=== PATIENT | male | born 1975 | race Caucasian/White ===

== ENCOUNTER 2017-08-14 15:14 | Emergency (ER) | payer OTHER ==
[~2017-08-14] VITALS: Ht 177.8 cm; Wt 122.5 kg
[~2017-08-14 15:14] MED LIST: DULO30; FURO20 PO; Flomax0.4 MG PO; GABA300; HYDHCL25; HYDPAM25; HYDR1TAB94 PO; NITR.4SL SL; ONDA4ODT MM; POTCHL10ER PO; Percocet 5-3251 EACH PO; SENN187; VARE1
[2017-08-14] MEDS ORDERED: VENL75ER PO (15:19)
[2017-08-14 15:53] LABS: BASOPHILS ABSOLUTE AUTO 0.02 K/mm3 (0.00-0.23); BASOPHILS PERCENT AUTO 0 % (0-2); EOSINOPHILS ABSOLUTE AUTO 0.14 K/mm3 (0.00-0.68); EOSINOPHILS PERCENT AUTO 2 % (0-6); Hemoglobin 15.4 g/dL (13.5-17.5); IMMATURE GRAN ABSOLUTE AUTO 0.01 K/mm3 (0.00-0.10); IMMATURE GRAN PERCENT AUTO 0 % (0-1); LYMPHOCYTES ABSOLUTE AUTO 2.16 K/mm3 (0.84-5.20); LYMPHOCYTES PERCENT AUTO 29 % (21-46); MONOCYTES ABSOLUTE AUTO 0.51 K/mm3 (0.16-1.47); MONOCYTES PERCENT AUTO 7 % (4-13); Mean Corpuscular HGB 32.2 pg (26.0-34.0); Mean Corpuscular Volume 92 fL (80-100); Mean Platelet Volume 9.7 fL (9.1-12.4); NEUTROPHILS ABSOLUTE AUTO 4.74 K/mm3 (1.96-9.15); NEUTROPHILS PERCENT AUTO 63 % (41-73); Platelet Count 254 K/mm3 (150-400); RDW Coefficient Variation 12.7 % (11.7-14.2); Red Blood Cell Count 4.78 M/mm3 (4.30-5.90); White Blood Cell Count 7.58 K/mm3 (4.00-11.30)
[2017-08-14] MEDS ORDERED: IBUP600 PO (16:00)
[2017-08-14] MEDS ORDERED: CEPH500 PO (16:00)
[2017-08-14 16:19] LABS: Alanine Aminotransfer (ALT/SGP 79 U/L (12-78); Albumin, Blood 3.7 g/dL (3.4-5.0); Albumin/Globulin Ratio 0.9 (0.8-1.8); Alk Phos 85 U/L (50-136); Anion Gap 12 mmol/L (6-16); Aspartate Aminotrans (AST/SGOT 37 U/L (12-37); Bilirubin, Total 0.3 mg/dL (0.1-1.0); Blood Urea Nitrogen 11 mg/dL (8-24); Bun/Creatinine Ratio 13.9 (12.0-20.0); CO2, Blood 23 mmol/L (21-32); Calcium, Blood 8.2 mg/dL (8.5-10.1); Chloride, Blood 105 mmol/L (98-108); Creatinine, Blood 0.79 mg/dL (0.60-1.20); Glomerular Filtration Rate >60 (60-); Glucose, Blood 105 mg/dL (70-99); Sodium, Blood 140 mmol/L (136-145); Total Protein, Blood 7.7 g/dL (6.4-8.2); Troponin I <0.015 ng/mL (0.000-0.040)
[2017-08-14] MEDS ORDERED: Zofran Odt4 MG SL (16:27)
[2017-08-14] MEDS ORDERED: Norco 5-325 Ta1 EACH PO (16:27)
[2017-08-14 17:09] LABS: Source, Urine Clean Catch
[2017-08-14 17:11] LABS: Bilirubin, Urine Neg (Neg); Blood, Urine Neg (Neg); Glucose Qualitative, Urine Neg (Neg); Ketones, Urine 1+ (Neg); Leukocyte Esterase, Urine 1+ (Neg); Nitrite, Urine Neg (Neg); Protein, Urine Neg (Neg); Specific Gravity, Urine 1.015 (1.003-1.022); Urobilinogen, Urine NORM (Normal)
[2017-08-14 17:13] LABS: Appearance, Urine Clear (Clear); Color, Urine Yellow (P-Yellow)
[2017-08-14 17:16] LABS: Bacteria Mod /hpf; Red Blood Cells, Urine 0-2 /hpf (0-2); White Blood Cells, Urine 0-2 /hpf (0-5)
[2017-08-14 17:17] LABS: Squamous Epithelial Cells Not Seen /hpf (Few)
== END 2017-08-14 17:20 | disposition home or self-care (01) ==
LOC: ER 15:14
PROVIDERS: Psychiatry & Neurology Psychiatry
DX: K52.9 Noninfective gastroenteritis and colitis, unspecified (principal); N12 Tubulo-interstitial nephritis, not specified as acute or chronic; N20.0 Calculus of kidney; F17.210 Nicotine dependence, cigarettes, uncomplicated; Z79.899 Other long term (current) drug therapy; Z87.442 Personal history of urinary calculi
CPT/HCPCS: 36415; 71046; 74176; 80053; 81001; 84484; 85025; 87086; 93005; 93010; 96361; 96374; 99284; J1885; J7030

== ENCOUNTER 2017-08-23 04:05 | Emergency (ER) | payer OTHER ==
[~2017-08-23] VITALS: Ht 177.8 cm; Wt 122.5 kg
[~2017-08-23 04:05] MED LIST changes: +CEPH500 PO; +IBUP600 PO; +Norco 5-325 Ta1 EACH PO; +VENL75ER PO; +Zofran Odt4 MG SL
[2017-08-23 04:44] LABS: BASOPHILS ABSOLUTE AUTO 0.07 K/mm3 (0.00-0.23); BASOPHILS PERCENT AUTO 1 % (0-2); EOSINOPHILS ABSOLUTE AUTO 0.22 K/mm3 (0.00-0.68); EOSINOPHILS PERCENT AUTO 2 % (0-6); Hematocrit 43.8 % (37.0-53.0); Hemoglobin 14.5 g/dL (13.5-17.5); IMMATURE GRAN ABSOLUTE AUTO 0.03 K/mm3 (0.00-0.10); IMMATURE GRAN PERCENT AUTO 0 % (0-1); LYMPHOCYTES ABSOLUTE AUTO 2.99 K/mm3 (0.84-5.20); LYMPHOCYTES PERCENT AUTO 24 % (21-46); MONOCYTES ABSOLUTE AUTO 0.79 K/mm3 (0.16-1.47); MONOCYTES PERCENT AUTO 6 % (4-13); Mean Corpuscular HGB 31.4 pg (26.0-34.0); Mean Corpuscular HGB Conc 33.1 g/dL (31.5-36.5); Mean Platelet Volume 9.5 fL (9.1-12.4); NEUTROPHILS ABSOLUTE AUTO 8.55 K/mm3 (1.96-9.15); NEUTROPHILS PERCENT AUTO 68 % (41-73); Platelet Count 254 K/mm3 (150-400); RDW Coefficient Variation 12.6 % (11.7-14.2); RDW Standard Deviation 43.8 fL (35.1-46.3); Red Blood Cell Count 4.62 M/mm3 (4.30-5.90); White Blood Cell Count 12.65 K/mm3 (4.00-11.30)
[2017-08-23 04:46] LABS: Mean Corpuscular Volume 95 fL (80-100)
[2017-08-23 04:57] LABS: Alanine Aminotransfer (ALT/SGP 81 U/L (12-78); Albumin, Blood 3.8 g/dL (3.4-5.0); Alk Phos 74 U/L (50-136); Anion Gap 8 mmol/L (6-16); Aspartate Aminotrans (AST/SGOT 34 U/L (12-37); Bilirubin, Total 0.4 mg/dL (0.1-1.0); Blood Urea Nitrogen 10 mg/dL (8-24); Bun/Creatinine Ratio 14.2 (12.0-20.0); CO2, Blood 23 mmol/L (21-32); Calcium, Blood 8.2 mg/dL (8.5-10.1); Chloride, Blood 106 mmol/L (98-108); Creatinine, Blood 0.71 mg/dL (0.60-1.20); Globulin, Blood 3.8 g/dL (2.2-4.0); Glomerular Filtration Rate >60 (60-); Glucose, Blood 104 mg/dL (70-99); Potassium, Blood 4.2 mmol/L (3.5-5.5); Sodium, Blood 137 mmol/L (136-145); Total Protein, Blood 7.6 g/dL (6.4-8.2)
[2017-08-23] MEDS ORDERED: Toprol Xl25 MG PO (07:00)
[2017-08-23] MEDS ORDERED: Percocet 5-3251 EACH PO (07:48)
[2017-08-23] MEDS ORDERED: Zofran Odt4 MG SL (07:48)
== END 2017-08-23 08:24 | disposition home or self-care (01) ==
LOC: ER 04:05
PROVIDERS: Emergency Medicine
DX: K80.20 Calculus of gallbladder without cholecystitis without obstruction (principal); Z79.891 Long term (current) use of opiate analgesic; Z79.899 Other long term (current) drug therapy; Z87.442 Personal history of urinary calculi; I51.7 Cardiomegaly; F17.200 Nicotine dependence, unspecified, uncomplicated
CPT/HCPCS: 36415; 74176; 76705; 80053; 83690; 85025; 93005; 93010; 96374; 96375; 96376; 99284; J1170; J2405

== ENCOUNTER 2017-08-26 10:35 | Emergency (ER) | payer OTHER ==
[~2017-08-26] VITALS: Ht 177.8 cm; Wt 122.5 kg
[~2017-08-26 10:35] MED LIST changes: +Toprol Xl25 MG PO
[2017-08-26 11:20] LABS: BASOPHILS ABSOLUTE AUTO 0.05 K/mm3 (0.00-0.23); BASOPHILS PERCENT AUTO 0 % (0-2); EOSINOPHILS ABSOLUTE AUTO 0.13 K/mm3 (0.00-0.68); EOSINOPHILS PERCENT AUTO 1 % (0-6); Hematocrit 41.5 % (37.0-53.0); Hemoglobin 14.1 g/dL (13.5-17.5); IMMATURE GRAN ABSOLUTE AUTO 0.07 K/mm3 (0.00-0.10); IMMATURE GRAN PERCENT AUTO 1 % (0-1); LYMPHOCYTES ABSOLUTE AUTO 1.38 K/mm3 (0.84-5.20); LYMPHOCYTES PERCENT AUTO 11 % (21-46); MONOCYTES ABSOLUTE AUTO 1.45 K/mm3 (0.16-1.47); MONOCYTES PERCENT AUTO 12 % (4-13); Mean Corpuscular HGB 31.3 pg (26.0-34.0); Mean Platelet Volume 9.9 fL (9.1-12.4); NEUTROPHILS ABSOLUTE AUTO 9.43 K/mm3 (1.96-9.15); NEUTROPHILS PERCENT AUTO 75 % (41-73); Platelet Count 254 K/mm3 (150-400); RDW Coefficient Variation 12.5 % (11.7-14.2); RDW Standard Deviation 42.3 fL (35.1-46.3); White Blood Cell Count 12.51 K/mm3 (4.00-11.30)
[2017-08-26 11:32] LABS: Mean Corpuscular Volume 92 fL (80-100)
[2017-08-26 11:42] LABS: Alanine Aminotransfer (ALT/SGP 508 U/L (12-78); Albumin, Blood 3.4 g/dL (3.4-5.0); Albumin/Globulin Ratio 0.8 (0.8-1.8); Alk Phos 153 U/L (50-136); Anion Gap 9 mmol/L (6-16); Aspartate Aminotrans (AST/SGOT 193 U/L (12-37); Bilirubin, Total 6.7 mg/dL (0.1-1.0); Blood Urea Nitrogen 7 mg/dL (8-24); Bun/Creatinine Ratio 9.5 (12.0-20.0); CO2, Blood 24 mmol/L (21-32); Calcium, Blood 8.7 mg/dL (8.5-10.1); Chloride, Blood 103 mmol/L (98-108); Creatinine, Blood 0.74 mg/dL (0.60-1.20); Globulin, Blood 4.4 g/dL (2.2-4.0); Glomerular Filtration Rate >60 (60-); Glucose, Blood 92 mg/dL (70-99); Potassium, Blood 3.7 mmol/L (3.5-5.5); Sodium, Blood 136 mmol/L (136-145); Total Protein, Blood 7.8 g/dL (6.4-8.2)
[2017-08-26 11:43] LABS: Source, Urine Clean Catch
[2017-08-26 11:51] LABS: Blood, Urine 1+ (Neg); Glucose Qualitative, Urine Neg (Neg); Ketones, Urine 1+ (Neg); Leukocyte Esterase, Urine 1+ (Neg); Nitrite, Urine Neg (Neg); Protein, Urine 1+ (Neg); Specific Gravity, Urine 1.015 (1.003-1.022); Urobilinogen, Urine 3+ (Normal); pH, Urine 6.5 (5.0-8.0)
[2017-08-26 12:07] LABS: Bilirubin, Urine 2+ (Neg)
[2017-08-26 12:08] LABS: Appearance, Urine Clear (Clear)
[2017-08-26 12:09] LABS: Bacteria Not Seen /hpf; Red Blood Cells, Urine Not Seen /hpf (0-2); Squamous Epithelial Cells Rare /hpf (Few)
[2017-08-26 12:15] LABS: Color, Urine Amber (P-Yellow)
== END 2017-08-26 14:32 | disposition left against medical advice (07) ==
LOC: ER 10:35
PROVIDERS: Emergency Medicine
DX: Z53.21 Procedure and treatment not carried out due to patient leaving prior to being seen by health care provider (principal)
CPT/HCPCS: 36415; 80053; 81001; 85025; 87086; 99283; J7030; J7120

== ENCOUNTER 2017-08-27 15:22 | Observation (INO) | payer OTHER ==
[~2017-08-27] VITALS: Ht 177.8 cm; Wt 121.3 kg
[2017-08-27 16:37] LABS: BASOPHILS ABSOLUTE AUTO 0.04 K/mm3 (0.00-0.23); BASOPHILS PERCENT AUTO 0 % (0-2); EOSINOPHILS ABSOLUTE AUTO 0.22 K/mm3 (0.00-0.68); EOSINOPHILS PERCENT AUTO 2 % (0-6); Hematocrit 42.3 % (37.0-53.0); Hemoglobin 14.3 g/dL (13.5-17.5); IMMATURE GRAN ABSOLUTE AUTO 0.04 K/mm3 (0.00-0.10); IMMATURE GRAN PERCENT AUTO 0 % (0-1); LYMPHOCYTES ABSOLUTE AUTO 2.09 K/mm3 (0.84-5.20); LYMPHOCYTES PERCENT AUTO 23 % (21-46); MONOCYTES ABSOLUTE AUTO 0.92 K/mm3 (0.16-1.47); MONOCYTES PERCENT AUTO 10 % (4-13); Mean Corpuscular HGB 31.6 pg (26.0-34.0); Mean Corpuscular HGB Conc 33.8 g/dL (31.5-36.5); Mean Corpuscular Volume 94 fL (80-100); Mean Platelet Volume 9.5 fL (9.1-12.4); NEUTROPHILS PERCENT AUTO 64 % (41-73); Platelet Count 289 K/mm3 (150-400); RDW Coefficient Variation 12.7 % (11.7-14.2); RDW Standard Deviation 43.8 fL (35.1-46.3); Red Blood Cell Count 4.52 M/mm3 (4.30-5.90); White Blood Cell Count 9.21 K/mm3 (4.00-11.30)
[2017-08-27 16:55] LABS: Alanine Aminotransfer (ALT/SGP 317 U/L (12-78); Albumin, Blood 3.3 g/dL (3.4-5.0); Albumin/Globulin Ratio 0.7 (0.8-1.8); Alk Phos 136 U/L (50-136); Anion Gap 7 mmol/L (6-16); Aspartate Aminotrans (AST/SGOT 67 U/L (12-37); Bilirubin, Total 1.4 mg/dL (0.1-1.0); Blood Urea Nitrogen 12 mg/dL (8-24); Bun/Creatinine Ratio 17.3 (12.0-20.0); CO2, Blood 24 mmol/L (21-32); Calcium, Blood 8.8 mg/dL (8.5-10.1); Chloride, Blood 107 mmol/L (98-108); Creatinine, Blood 0.69 mg/dL (0.60-1.20); Globulin, Blood 4.6 g/dL (2.2-4.0); Glomerular Filtration Rate >60 (60-); Glucose, Blood 87 mg/dL (70-99); Potassium, Blood 4.1 mmol/L (3.5-5.5); Sodium, Blood 138 mmol/L (136-145); Total Protein, Blood 7.9 g/dL (6.4-8.2)
[2017-08-27 18:43] LABS: Source, Urine Clean Catch
[2017-08-27 19:07] LABS: Appearance, Urine Clear (Clear); Blood, Urine Neg (Neg); Color, Urine Amber (P-Yellow); Glucose Qualitative, Urine Neg (Neg); Ketones, Urine 2+ (Neg); Leukocyte Esterase, Urine 1+ (Neg); Nitrite, Urine Pos (Neg); Protein, Urine 2+ (Neg); Urobilinogen, Urine 4+ (Normal)
[2017-08-27 19:15] LABS: Bilirubin, Urine 2+ (Neg)
[2017-08-27 19:18] LABS: Bacteria Rare /hpf; Red Blood Cells, Urine Not Seen /hpf (0-2); Squamous Epithelial Cells Rare /hpf (Few); White Blood Cells, Urine 0-2 /hpf (0-5)
[2017-08-28 04:59] LABS: BASOPHILS ABSOLUTE AUTO 0.04 K/mm3 (0.00-0.23); BASOPHILS PERCENT AUTO 0 % (0-2); EOSINOPHILS ABSOLUTE AUTO 0.34 K/mm3 (0.00-0.68); EOSINOPHILS PERCENT AUTO 4 % (0-6); Hematocrit 37.7 % (37.0-53.0); Hemoglobin 12.4 g/dL (13.5-17.5); IMMATURE GRAN ABSOLUTE AUTO 0.02 K/mm3 (0.00-0.10); IMMATURE GRAN PERCENT AUTO 0 % (0-1); LYMPHOCYTES ABSOLUTE AUTO 2.86 K/mm3 (0.84-5.20); LYMPHOCYTES PERCENT AUTO 32 % (21-46); MONOCYTES ABSOLUTE AUTO 0.89 K/mm3 (0.16-1.47); MONOCYTES PERCENT AUTO 10 % (4-13); Mean Corpuscular HGB 31.3 pg (26.0-34.0); Mean Corpuscular HGB Conc 32.9 g/dL (31.5-36.5); Mean Corpuscular Volume 95 fL (80-100); NEUTROPHILS ABSOLUTE AUTO 4.82 K/mm3 (1.96-9.15); NEUTROPHILS PERCENT AUTO 54 % (41-73); Platelet Count 247 K/mm3 (150-400); RDW Coefficient Variation 12.5 % (11.7-14.2); RDW Standard Deviation 43.8 fL (35.1-46.3); Red Blood Cell Count 3.96 M/mm3 (4.30-5.90); White Blood Cell Count 8.97 K/mm3 (4.00-11.30)
[2017-08-28 05:18] LABS: Alanine Aminotransfer (ALT/SGP 232 U/L (12-78); Albumin, Blood 2.7 g/dL (3.4-5.0); Albumin/Globulin Ratio 0.7 (0.8-1.8); Alk Phos 105 U/L (50-136); Amylase, Blood 16 U/L (25-115); Anion Gap 8 mmol/L (6-16); Aspartate Aminotrans (AST/SGOT 47 U/L (12-37); Bilirubin, Direct 0.6 mg/dL (0.0-0.3); Bilirubin, Indirect 0.5 mg/dL (0.1-0.7); Bilirubin, Total 1.1 mg/dL (0.1-1.0); Blood Urea Nitrogen 11 mg/dL (8-24); Bun/Creatinine Ratio 14.6 (12.0-20.0); CO2, Blood 26 mmol/L (21-32); Calcium, Blood 8.1 mg/dL (8.5-10.1); Chloride, Blood 105 mmol/L (98-108); Creatinine, Blood 0.75 mg/dL (0.60-1.20); Glomerular Filtration Rate >60 (60-); Glucose, Blood 75 mg/dL (70-99); Potassium, Blood 3.9 mmol/L (3.5-5.5); Sodium, Blood 139 mmol/L (136-145); Total Protein, Blood 6.7 g/dL (6.4-8.2)
[2017-08-29 04:39] LABS: BASOPHILS ABSOLUTE AUTO 0.01 K/mm3 (0.00-0.23); BASOPHILS PERCENT AUTO 0 % (0-2); EOSINOPHILS PERCENT AUTO 0 % (0-6); Hematocrit 36.6 % (37.0-53.0); IMMATURE GRAN ABSOLUTE AUTO 0.05 K/mm3 (0.00-0.10); IMMATURE GRAN PERCENT AUTO 0 % (0-1); LYMPHOCYTES ABSOLUTE AUTO 1.41 K/mm3 (0.84-5.20); LYMPHOCYTES PERCENT AUTO 12 % (21-46); MONOCYTES ABSOLUTE AUTO 0.84 K/mm3 (0.16-1.47); MONOCYTES PERCENT AUTO 7 % (4-13); Mean Corpuscular HGB 31.2 pg (26.0-34.0); Mean Corpuscular HGB Conc 32.8 g/dL (31.5-36.5); Mean Corpuscular Volume 95 fL (80-100); Mean Platelet Volume 9.8 fL (9.1-12.4); NEUTROPHILS ABSOLUTE AUTO 9.26 K/mm3 (1.96-9.15); NEUTROPHILS PERCENT AUTO 80 % (41-73); Platelet Count 310 K/mm3 (150-400); RDW Coefficient Variation 12.6 % (11.7-14.2); RDW Standard Deviation 43.9 fL (35.1-46.3); Red Blood Cell Count 3.85 M/mm3 (4.30-5.90); White Blood Cell Count 11.57 K/mm3 (4.00-11.30)
[2017-08-29 05:05] LABS: Alanine Aminotransfer (ALT/SGP 219 U/L (12-78); Albumin/Globulin Ratio 0.7 (0.8-1.8); Alk Phos 106 U/L (50-136); Anion Gap 6 mmol/L (6-16); Aspartate Aminotrans (AST/SGOT 60 U/L (12-37); Bilirubin, Direct 0.5 mg/dL (0.0-0.3); Bilirubin, Indirect 0.4 mg/dL (0.1-0.7); Bilirubin, Total 0.9 mg/dL (0.1-1.0); Blood Urea Nitrogen 8 mg/dL (8-24); Bun/Creatinine Ratio 11.8 (12.0-20.0); CO2, Blood 29 mmol/L (21-32); Calcium, Blood 8.3 mg/dL (8.5-10.1); Chloride, Blood 104 mmol/L (98-108); Creatinine, Blood 0.68 mg/dL (0.60-1.20); Globulin, Blood 4.1 g/dL (2.2-4.0); Glomerular Filtration Rate >60 (60-); Glucose, Blood 106 mg/dL (70-99); Magnesium, Blood 2.2 mg/dL (1.6-2.4); Phosphorus, Blood 4.1 mg/dL (2.5-4.9); Potassium, Blood 4.2 mmol/L (3.5-5.5); Sodium, Blood 139 mmol/L (136-145); Total Protein, Blood 7.1 g/dL (6.4-8.2)
== END 2017-08-29 04:45 | disposition short-term general hospital (02) ==
LOC: ER 15:22 → SURS 15:23
PROVIDERS: Physician Assistant; Surgery
PROC: 0FT44ZZ Resection of Gallbladder, Percutaneous Endoscopic Approach (ICD-10-PCS; principal; 2017-08-28 12:30)
DX: K80.00 Calculus of gallbladder with acute cholecystitis without obstruction (principal); F17.200 Nicotine dependence, unspecified, uncomplicated; F12.90 Cannabis use, unspecified, uncomplicated; G47.33 Obstructive sleep apnea (adult) (pediatric); E66.01 Morbid (severe) obesity due to excess calories; Z87.442 Personal history of urinary calculi; Z98.890 Other specified postprocedural states; Z68.38 Body mass index [BMI] 38.0-38.9, adult
CPT/HCPCS: 36415; 76705; 80048; 80053; 80076; 81001; 82150; 83690; 83735; 84100; 85025; 87086; 88304; 94762; 96361; 96365; 96372; 96375; 96376; 99285; G0378; J0295; J0330; J0697; J1100; J1170; J1200; J1650; J2250; J2270; J2405; J2710; J2765; J3010; J7030; J7120

== ENCOUNTER 2017-09-03 20:20 | Emergency (ER) | payer OTHER ==
[~2017-09-03] VITALS: Ht 177.8 cm; Wt 122.5 kg
[2017-09-03 23:24] LABS: BASOPHILS ABSOLUTE AUTO 0.04 K/mm3 (0.00-0.23); BASOPHILS PERCENT AUTO 0 % (0-2); EOSINOPHILS ABSOLUTE AUTO 0.29 K/mm3 (0.00-0.68); EOSINOPHILS PERCENT AUTO 3 % (0-6); Hematocrit 38.8 % (37.0-53.0); IMMATURE GRAN ABSOLUTE AUTO 0.06 K/mm3 (0.00-0.10); IMMATURE GRAN PERCENT AUTO 1 % (0-1); LYMPHOCYTES ABSOLUTE AUTO 2.84 K/mm3 (0.84-5.20); LYMPHOCYTES PERCENT AUTO 31 % (21-46); MONOCYTES ABSOLUTE AUTO 0.62 K/mm3 (0.16-1.47); MONOCYTES PERCENT AUTO 7 % (4-13); Mean Corpuscular HGB 31.8 pg (26.0-34.0); Mean Corpuscular HGB Conc 33.5 g/dL (31.5-36.5); Mean Corpuscular Volume 95 fL (80-100); Mean Platelet Volume 9.3 fL (9.1-12.4); NEUTROPHILS ABSOLUTE AUTO 5.31 K/mm3 (1.96-9.15); NEUTROPHILS PERCENT AUTO 58 % (41-73); Platelet Count 447 K/mm3 (150-400); RDW Coefficient Variation 12.6 % (11.7-14.2); RDW Standard Deviation 44.1 fL (35.1-46.3); Red Blood Cell Count 4.09 M/mm3 (4.30-5.90); White Blood Cell Count 9.16 K/mm3 (4.00-11.30)
[2017-09-03 23:40] LABS: Alanine Aminotransfer (ALT/SGP 66 U/L (12-78); Albumin, Blood 2.9 g/dL (3.4-5.0); Albumin/Globulin Ratio 0.7 (0.8-1.8); Alk Phos 88 U/L (50-136); Anion Gap 5 mmol/L (6-16); Aspartate Aminotrans (AST/SGOT 29 U/L (12-37); Bilirubin, Total 0.4 mg/dL (0.1-1.0); Blood Urea Nitrogen 13 mg/dL (8-24); Bun/Creatinine Ratio 20.6 (12.0-20.0); CO2, Blood 26 mmol/L (21-32); Calcium, Blood 8.3 mg/dL (8.5-10.1); Chloride, Blood 108 mmol/L (98-108); Creatinine, Blood 0.63 mg/dL (0.60-1.20); Globulin, Blood 4.4 g/dL (2.2-4.0); Glomerular Filtration Rate >60 (60-); Glucose, Blood 92 mg/dL (70-99); Potassium, Blood 4.8 mmol/L (3.5-5.5); Sodium, Blood 139 mmol/L (136-145); Total Protein, Blood 7.3 g/dL (6.4-8.2)
[2017-09-04] MEDS ORDERED: Augmentin 875-1 EACH PO (00:47)
[2017-09-04] MEDS ORDERED: DOCU100 PO (00:47)
[2017-09-04] MEDS ORDERED: Roxicodone5 MG PO (00:47)
== END 2017-09-04 02:44 | disposition home or self-care (01) ==
LOC: ER 20:20
PROVIDERS: Emergency Medicine
DX: G89.18 Other acute postprocedural pain (principal); R10.11 Right upper quadrant pain; F17.210 Nicotine dependence, cigarettes, uncomplicated; Z87.442 Personal history of urinary calculi
CPT/HCPCS: 74177; 80053; 83690; 85025; 93005; 93010; 96361; 96365; 96375; 96376; 99284; J1170; J2543; J7030; Q9967

== ENCOUNTER 2017-09-14 21:52 | Emergency (ER) | payer OTHER ==
[~2017-09-14] VITALS: Ht 177.8 cm; Wt 126.1 kg
[~2017-09-14 21:52] MED LIST changes: +Augmentin 875-1 EACH PO; +DOCU100 PO; +Roxicodone5 MG PO
[2017-09-14 23:07] LABS: BASOPHILS ABSOLUTE AUTO 0.05 K/mm3 (0.00-0.23); BASOPHILS PERCENT AUTO 1 % (0-2); EOSINOPHILS ABSOLUTE AUTO 0.29 K/mm3 (0.00-0.68); EOSINOPHILS PERCENT AUTO 3 % (0-6); Hematocrit 39.9 % (37.0-53.0); Hemoglobin 13.2 g/dL (13.5-17.5); Mean Corpuscular HGB 31.2 pg (26.0-34.0); Mean Corpuscular HGB Conc 33.1 g/dL (31.5-36.5); Mean Corpuscular Volume 94 fL (80-100); Mean Platelet Volume 9.3 fL (9.1-12.4); Platelet Count 337 K/mm3 (150-400); RDW Coefficient Variation 12.9 % (11.7-14.2); RDW Standard Deviation 44.4 fL (35.1-46.3); Red Blood Cell Count 4.23 M/mm3 (4.30-5.90); White Blood Cell Count 10.08 K/mm3 (4.00-11.30)
[2017-09-14 23:08] LABS: IMMATURE GRAN ABSOLUTE AUTO 0.02 K/mm3 (0.00-0.10); IMMATURE GRAN PERCENT AUTO 0 % (0-1); LYMPHOCYTES PERCENT AUTO 41 % (21-46); MONOCYTES ABSOLUTE AUTO 0.73 K/mm3 (0.16-1.47); MONOCYTES PERCENT AUTO 7 % (4-13); NEUTROPHILS ABSOLUTE AUTO 4.89 K/mm3 (1.96-9.15); NEUTROPHILS PERCENT AUTO 49 % (41-73)
[2017-09-14 23:27] LABS: Alanine Aminotransfer (ALT/SGP 71 U/L (12-78); Albumin, Blood 3.4 g/dL (3.4-5.0); Albumin/Globulin Ratio 0.9 (0.8-1.8); Alk Phos 79 U/L (50-136); Anion Gap 6 mmol/L (6-16); Aspartate Aminotrans (AST/SGOT 32 U/L (12-37); Bilirubin, Total 0.3 mg/dL (0.1-1.0); Blood Urea Nitrogen 12 mg/dL (8-24); Bun/Creatinine Ratio 15.5 (12.0-20.0); CO2, Blood 29 mmol/L (21-32); Calcium, Blood 8.4 mg/dL (8.5-10.1); Chloride, Blood 106 mmol/L (98-108); Creatinine, Blood 0.77 mg/dL (0.60-1.20); Globulin, Blood 3.8 g/dL (2.2-4.0); Glomerular Filtration Rate >60 (60-); Glucose, Blood 95 mg/dL (70-99); Potassium, Blood 3.9 mmol/L (3.5-5.5); Sodium, Blood 141 mmol/L (136-145); Total Protein, Blood 7.2 g/dL (6.4-8.2)
== END 2017-09-15 01:35 | disposition home or self-care (01) ==
LOC: ER 21:52
PROVIDERS: Emergency Medicine
DX: G89.18 Other acute postprocedural pain (principal); R10.9 Unspecified abdominal pain; Z79.899 Other long term (current) drug therapy; Z87.442 Personal history of urinary calculi; F17.210 Nicotine dependence, cigarettes, uncomplicated; Z48.815 Encounter for surgical aftercare following surgery on the digestive system
CPT/HCPCS: 36415; 74176; 80053; 83605; 83690; 85025; 87040; 99284; J7030

== ENCOUNTER 2019-07-11 15:43 | Emergency (ER) | payer OTHER ==
[~2019-07-11] VITALS: Ht 177.8 cm; Wt 136.1 kg
[2019-07-11 16:17] LABS: BASOPHILS ABSOLUTE AUTO 0.03 K/mm3 (0.00-0.23); BASOPHILS PERCENT AUTO 0 % (0-2); EOSINOPHILS ABSOLUTE AUTO 0.21 K/mm3 (0.00-0.68); EOSINOPHILS PERCENT AUTO 3 % (0-6); Hematocrit 44.5 % (37.0-53.0); Hemoglobin 14.7 g/dL (13.5-17.5); IMMATURE GRAN ABSOLUTE AUTO 0.01 K/mm3 (0.00-0.10); IMMATURE GRAN PERCENT AUTO 0 % (0-1); LYMPHOCYTES ABSOLUTE AUTO 2.29 K/mm3 (0.84-5.20); LYMPHOCYTES PERCENT AUTO 28 % (21-46); MONOCYTES ABSOLUTE AUTO 0.55 K/mm3 (0.16-1.47); MONOCYTES PERCENT AUTO 7 % (4-13); Mean Corpuscular HGB 31.5 pg (26.0-34.0); Mean Corpuscular Volume 96 fL (80-100); Mean Platelet Volume 9.6 fL (9.1-12.4); NEUTROPHILS PERCENT AUTO 62 % (41-73); Platelet Count 277 K/mm3 (150-400); RDW Coefficient Variation 12.9 % (11.7-14.2); RDW Standard Deviation 45.6 fL (35.1-46.3); Red Blood Cell Count 4.66 M/mm3 (4.30-5.90); White Blood Cell Count 8.09 K/mm3 (4.00-11.30)
[2019-07-11 16:37] LABS: Alanine Aminotransfer (ALT/SGP 104 U/L (12-78); Albumin, Blood 3.6 g/dL (3.4-5.0); Albumin/Globulin Ratio 0.9 (0.8-1.8); Alk Phos 82 U/L (50-136); Anion Gap 5 mmol/L (6-16); Aspartate Aminotrans (AST/SGOT 43 U/L (12-37); Bilirubin, Total 0.4 mg/dL (0.1-1.0); Blood Urea Nitrogen 13 mg/dL (8-24); Bun/Creatinine Ratio 14.2 (12.0-20.0); CO2, Blood 27 mmol/L (21-32); Calcium, Blood 8.7 mg/dL (8.5-10.1); Chloride, Blood 105 mmol/L (98-108); Creatinine, Blood 0.91 mg/dL (0.60-1.20); Glomerular Filtration Rate >60 (60-); Glucose, Blood 143 mg/dL (70-99); Potassium, Blood 3.6 mmol/L (3.5-5.5); Sodium, Blood 137 mmol/L (136-145); Total Protein, Blood 7.6 g/dL (6.4-8.2); Troponin I <0.015 ng/mL (0.000-0.040)
[2019-07-11] MEDS ORDERED: FURO20 PO (16:48)
--- NOTE | 2019-07-11 19:19 | NUR ---
Echocardiogram completed.
[2019-07-11] MEDS ORDERED: Dyazide 37.5-21 EACH PO (19:34)
== END 2019-07-11 19:55 | disposition home or self-care (01) ==
LOC: ER 15:43
PROVIDERS: Physician Assistant
DX: R60.0 Localized edema (principal); E66.9 Obesity, unspecified; F17.210 Nicotine dependence, cigarettes, uncomplicated; Z68.41 Body mass index [BMI] 40.0-44.9, adult; Z79.899 Other long term (current) drug therapy
CPT/HCPCS: 36415; 71046; 80053; 83880; 84484; 85025; 85379; 93005; 93010; 93306; 93971; 99284-25

== ENCOUNTER 2019-07-12 17:56 | Emergency (ER) | payer OTHER ==
[~2019-07-12] VITALS: Ht 177.8 cm; Wt 136.1 kg
[~2019-07-12 17:56] MED LIST changes: +Dyazide 37.5-21 EACH PO
[2019-07-12 18:50] LABS: Calcium, Ionized (POC) 1.16 mmol/L (1.10-1.46); Chloride (POC) 102 mmol/L (98-108); Glucose (ISTAT POC) 99 mg/dL (70-99); Hemoglobin (POC) 15.3 g/dL (13.5-17.5); Sodium (POC) 139 mmol/L (135-148); Total CO2 (POC) 30 mmol/L (21-32)
[2019-07-12 19:05] LABS: BASOPHILS ABSOLUTE AUTO 0.04 K/mm3 (0.00-0.23); BASOPHILS PERCENT AUTO 1 % (0-2); EOSINOPHILS ABSOLUTE AUTO 0.25 K/mm3 (0.00-0.68); EOSINOPHILS PERCENT AUTO 3 % (0-6); Hematocrit 44.6 % (37.0-53.0); Hemoglobin 14.9 g/dL (13.5-17.5); IMMATURE GRAN ABSOLUTE AUTO 0.01 K/mm3 (0.00-0.10); IMMATURE GRAN PERCENT AUTO 0 % (0-1); LYMPHOCYTES ABSOLUTE AUTO 2.64 K/mm3 (0.84-5.20); LYMPHOCYTES PERCENT AUTO 32 % (21-46); MONOCYTES ABSOLUTE AUTO 0.63 K/mm3 (0.16-1.47); MONOCYTES PERCENT AUTO 8 % (4-13); Mean Corpuscular HGB 31.6 pg (26.0-34.0); Mean Corpuscular HGB Conc 33.4 g/dL (31.5-36.5); Mean Corpuscular Volume 95 fL (80-100); Mean Platelet Volume 9.7 fL (9.1-12.4); NEUTROPHILS ABSOLUTE AUTO 4.77 K/mm3 (1.96-9.15); NEUTROPHILS PERCENT AUTO 57 % (41-73); Platelet Count 283 K/mm3 (150-400); RDW Coefficient Variation 12.6 % (11.7-14.2); RDW Standard Deviation 44.8 fL (35.1-46.3); Red Blood Cell Count 4.71 M/mm3 (4.30-5.90); White Blood Cell Count 8.34 K/mm3 (4.00-11.30)
[2019-07-12 19:19] LABS: International Normalized Ratio 0.95; Prothrombin Time Results 10.1 Sec (9.7-11.5)
[2019-07-12 19:29] LABS: Alanine Aminotransfer (ALT/SGP 117 U/L (12-78); Albumin, Blood 3.6 g/dL (3.4-5.0); Albumin/Globulin Ratio 0.9 (0.8-1.8); Alk Phos 84 U/L (50-136); Anion Gap 5 mmol/L (6-16); Aspartate Aminotrans (AST/SGOT 46 U/L (12-37); Bilirubin, Total 0.3 mg/dL (0.1-1.0); Blood Urea Nitrogen 12 mg/dL (8-24); Bun/Creatinine Ratio 14.3 (12.0-20.0); CO2, Blood 29 mmol/L (21-32); Chloride, Blood 104 mmol/L (98-108); Creatinine, Blood 0.84 mg/dL (0.60-1.20); Globulin, Blood 4.2 g/dL (2.2-4.0); Glomerular Filtration Rate >60 (60-); Glucose, Blood 94 mg/dL (70-99); Potassium, Blood 3.9 mmol/L (3.5-5.5); Sodium, Blood 138 mmol/L (136-145); Total Protein, Blood 7.8 g/dL (6.4-8.2)
== END 2019-07-12 20:55 | disposition home or self-care (01) ==
LOC: ER 17:56
PROVIDERS: Physician Assistant
DX: R04.0 Epistaxis (principal); F17.210 Nicotine dependence, cigarettes, uncomplicated
CPT/HCPCS: 36415; 71046; 80047; 80053; 85014; 85025; 85610; 85730; 93005; 93010; 99284-25

== ENCOUNTER 2019-07-13 17:10 | Observation (INO) | payer OTHER ==
[~2019-07-13] VITALS: Ht 180.3 cm; Wt 143.0 kg
[2019-07-13 18:15] LABS: BASOPHILS ABSOLUTE AUTO 0.05 K/mm3 (0.00-0.23); BASOPHILS PERCENT AUTO 1 % (0-2); EOSINOPHILS ABSOLUTE AUTO 0.31 K/mm3 (0.00-0.68); EOSINOPHILS PERCENT AUTO 3 % (0-6); Hematocrit 44.5 % (37.0-53.0); Hemoglobin 15.3 g/dL (13.5-17.5); IMMATURE GRAN ABSOLUTE AUTO 0.02 K/mm3 (0.00-0.10); IMMATURE GRAN PERCENT AUTO 0 % (0-1); LYMPHOCYTES ABSOLUTE AUTO 3.42 K/mm3 (0.84-5.20); LYMPHOCYTES PERCENT AUTO 33 % (21-46); MONOCYTES ABSOLUTE AUTO 0.89 K/mm3 (0.16-1.47); MONOCYTES PERCENT AUTO 9 % (4-13); Mean Corpuscular HGB 32.5 pg (26.0-34.0); Mean Corpuscular HGB Conc 34.4 g/dL (31.5-36.5); Mean Corpuscular Volume 95 fL (80-100); Mean Platelet Volume 9.8 fL (9.1-12.4); NEUTROPHILS ABSOLUTE AUTO 5.54 K/mm3 (1.96-9.15); NEUTROPHILS PERCENT AUTO 54 % (41-73); Platelet Count 316 K/mm3 (150-400); RDW Coefficient Variation 12.8 % (11.7-14.2); RDW Standard Deviation 44.9 fL (35.1-46.3); Red Blood Cell Count 4.71 M/mm3 (4.30-5.90); White Blood Cell Count 10.23 K/mm3 (4.00-11.30)
[2019-07-13 18:30] LABS: International Normalized Ratio 0.95; Prothrombin Time Results 10.1 Sec (9.7-11.5)
[2019-07-13 18:38] LABS: Alanine Aminotransfer (ALT/SGP 134 U/L (12-78); Albumin, Blood 3.6 g/dL (3.4-5.0); Albumin/Globulin Ratio 0.9 (0.8-1.8); Alk Phos 85 U/L (50-136); Anion Gap 5 mmol/L (6-16); Aspartate Aminotrans (AST/SGOT 57 U/L (12-37); Bilirubin, Total 0.4 mg/dL (0.1-1.0); Blood Urea Nitrogen 15 mg/dL (8-24); Bun/Creatinine Ratio 16.1 (12.0-20.0); CO2, Blood 29 mmol/L (21-32); Calcium, Blood 8.6 mg/dL (8.5-10.1); Chloride, Blood 104 mmol/L (98-108); Creatinine, Blood 0.93 mg/dL (0.60-1.20); Globulin, Blood 4.1 g/dL (2.2-4.0); Glomerular Filtration Rate >60 (60-); Glucose, Blood 96 mg/dL (70-99); Potassium, Blood 3.6 mmol/L (3.5-5.5); Sodium, Blood 138 mmol/L (136-145); Total Protein, Blood 7.7 g/dL (6.4-8.2)
--- NOTE | 2019-07-13 22:46 | NUR ---
PT TO ICU 16 AT 2215 RECOVERY AFTER SEPTOPLASTY AND ETHMOID ARTERY LIGATION. PT WAS INITIALLY A LITTLE COMBATIVE BUT CLEARED QUICKLY. PT IS TALKING WITH AND MOM AT BEDSIDE NOW. ABLE TO FOLLOW COMMANDS. ON RA AND SPO2 IN THE 90'S.
--- NOTE | 2019-07-13 23:39 | NUR ---
2339: SILVER COLORED RING WITH INUPIAT LIKE FACE RETURNED TO PT FROM CHART AND PT PLACES ON 5TH DIGIT OF RIGHT HAND. PT ROUSES TO VOICE BUT APPEARS DROWSY. MAINTAIN NPO STATUS, CALL LIGHT IN REACH.
--- NOTE | 2019-07-13 23:45 | NUR ---
PT HERE FROM RECOVERY. A/O X4. FAMILY AT BEDSIDE.
[2019-07-14] MEDS ORDERED: OMEPRAZOLE20 MG PO (00:08)
--- NOTE | 2019-07-14 04:04 | NUR ---
SHIFT SUMMARY PT IS S/P SURGERY D/T ONGOING NOSEBLEED. PT IS A/O, TOLERATING PO INTAKE. REPORTS NO N/V. PAIN CONTROLLED WITH PO PAIN MED PER ORDER. PT IS VOIDING, AMBULATES IND. FAMILY IS AT BEDSIDE. PT HAS SLEPT MUCH OF THE NIGHT. ASSISTED WITH ADL'S PRN.
[2019-07-14] MEDS ORDERED: Percocet 5-3251 EACH PO (10:20)
[2019-07-14] MEDS ORDERED: OXYM.05NI (10:21)
--- NOTE | 2019-07-14 11:05 | NUR ---
DISCHARGED REVIEWED DC INSTRUCTIONS W/PT; VERBALIZED UNDERSTANDING. DC'D IV, CATHETER INTACT. DC'D TELE AND RETURNED TO PCU. PT LEFT UNIT IN WC W/POSSESSIONS AND DC PAPERWORK IN HAND ACCOMPANIED BY S.O.
--- NOTE | 2019-07-16 09:44 | NUR ---
07/16/19 0944 Elva Colvin VERIFICATIONS: EDIT CHART.
== END 2019-07-14 10:41 | disposition home or self-care (01) ==
LOC: ER 17:10 → SURS 17:11 → ER 18:34 → SURS 18:34
PROVIDERS: Otolaryngology; Physician Assistant; ADMIT Hospitalist
PROC: 093K8ZZ Control Bleeding in Nasal Mucosa and Soft Tissue, Via Natural or Artificial Opening Endoscopic (ICD-10-PCS; principal; 2019-07-13 18:30)
DX: R04.0 Epistaxis (principal); K21.9 Gastro-esophageal reflux disease without esophagitis; I10 Essential (primary) hypertension; F17.210 Nicotine dependence, cigarettes, uncomplicated; F17.220 Nicotine dependence, chewing tobacco, uncomplicated; E66.01 Morbid (severe) obesity due to excess calories; Z68.41 Body mass index [BMI] 40.0-44.9, adult; Z79.899 Other long term (current) drug therapy
CPT/HCPCS: 36415; 80053; 85025; 85610; 86850; 86900; 86901; 96361; 96374; 99284-25; J0171; J0330; J1100; J2060; J2405; J2704; J3010; J7030; J7120

== ENCOUNTER → 2019-09-04 | Outpatient (CLI) | payer OTHER ==
[~2019-09-04] MED LIST changes: +OMEPRAZOLE20 MG PO; +OXYM.05NI
== END | disposition home or self-care (01) ==
LOC: PLD 07:48 → LAB SHORT 07:48
DX: D10.39 Benign neoplasm of other parts of mouth (principal)
CPT/HCPCS: 88302

== ENCOUNTER 2019-10-15 07:23 | Emergency (ER) | payer OTHER ==
[~2019-10-15] VITALS: Ht 177.8 cm; Wt 138.3 kg
[2019-10-15 08:35] LABS: BASOPHILS ABSOLUTE AUTO 0.03 K/mm3 (0.00-0.23); BASOPHILS PERCENT AUTO 0 % (0-2); EOSINOPHILS ABSOLUTE AUTO 0.21 K/mm3 (0.00-0.68); EOSINOPHILS PERCENT AUTO 3 % (0-6); Hematocrit 41.9 % (37.0-53.0); Hemoglobin 13.8 g/dL (13.5-17.5); IMMATURE GRAN ABSOLUTE AUTO 0.02 K/mm3 (0.00-0.10); IMMATURE GRAN PERCENT AUTO 0 % (0-1); LYMPHOCYTES ABSOLUTE AUTO 2.28 K/mm3 (0.84-5.20); LYMPHOCYTES PERCENT AUTO 27 % (21-46); MONOCYTES ABSOLUTE AUTO 0.72 K/mm3 (0.16-1.47); MONOCYTES PERCENT AUTO 8 % (4-13); Mean Corpuscular HGB Conc 32.9 g/dL (31.5-36.5); Mean Corpuscular Volume 94 fL (80-100); Mean Platelet Volume 9.5 fL (9.1-12.4); NEUTROPHILS ABSOLUTE AUTO 5.31 K/mm3 (1.96-9.15); NEUTROPHILS PERCENT AUTO 62 % (41-73); Platelet Count 254 K/mm3 (150-400); RDW Coefficient Variation 13.4 % (11.7-14.2); RDW Standard Deviation 46.1 fL (35.1-46.3); Red Blood Cell Count 4.45 M/mm3 (4.30-5.90); White Blood Cell Count 8.57 K/mm3 (4.00-11.30)
[2019-10-15 08:50] LABS: Alanine Aminotransfer (ALT/SGP 93 U/L (12-78); Albumin, Blood 3.2 g/dL (3.4-5.0); Albumin/Globulin Ratio 0.8 (0.8-1.8); Alk Phos 77 U/L (50-136); Anion Gap 5 mmol/L (6-16); Aspartate Aminotrans (AST/SGOT 39 U/L (12-37); Bilirubin, Total 0.3 mg/dL (0.1-1.0); Blood Urea Nitrogen 10 mg/dL (8-24); Bun/Creatinine Ratio 10.4 (12.0-20.0); CO2, Blood 27 mmol/L (21-32); Calcium, Blood 8.2 mg/dL (8.5-10.1); Chloride, Blood 107 mmol/L (98-108); Creatinine, Blood 0.97 mg/dL (0.60-1.20); Globulin, Blood 3.9 g/dL (2.2-4.0); Glomerular Filtration Rate >60 (60-); Glucose, Blood 97 mg/dL (70-99); Potassium, Blood 3.8 mmol/L (3.5-5.5); Sodium, Blood 139 mmol/L (136-145); Total Protein, Blood 7.1 g/dL (6.4-8.2); Troponin I <0.015 ng/mL (0.000-0.040)
[2019-10-15] MEDS ORDERED: Lasix40 MG PO (09:54)
[2019-10-15] MEDS ORDERED: K-Dur20 MEQ PO (09:58)
== END 2019-10-15 10:08 | disposition home or self-care (01) ==
LOC: ER 07:23
PROVIDERS: Emergency Medicine
DX: R60.0 Localized edema (principal); F10.20 Alcohol dependence, uncomplicated; F17.210 Nicotine dependence, cigarettes, uncomplicated
CPT/HCPCS: 36415; 71046; 80053; 83880; 84484; 85025; 93005; 93010

== ENCOUNTER 2019-11-25 07:22 | Inpatient (IN) | payer OTHER ==
[~2019-11-25] VITALS: Ht 177.8 cm; Wt 145.4 kg
[~2019-11-25 07:22] MED LIST changes: +K-Dur20 MEQ PO; +Lasix40 MG PO
[2019-11-25 07:39] LABS: BASOPHILS ABSOLUTE AUTO 0.04 K/mm3 (0.00-0.23); BASOPHILS PERCENT AUTO 0 % (0-2); EOSINOPHILS PERCENT AUTO 4 % (0-6); Hemoglobin 14.7 g/dL (13.5-17.5); IMMATURE GRAN ABSOLUTE AUTO 0.06 K/mm3 (0.00-0.10); IMMATURE GRAN PERCENT AUTO 1 % (0-1); LYMPHOCYTES PERCENT AUTO 18 % (21-46); MONOCYTES ABSOLUTE AUTO 0.62 K/mm3 (0.16-1.47); MONOCYTES PERCENT AUTO 6 % (4-13); Mean Corpuscular HGB 30.2 pg (26.0-34.0); Mean Corpuscular HGB Conc 32.7 g/dL (31.5-36.5); Mean Corpuscular Volume 92 fL (80-100); Mean Platelet Volume 9.4 fL (9.1-12.4); NEUTROPHILS ABSOLUTE AUTO 7.56 K/mm3 (1.96-9.15); NEUTROPHILS PERCENT AUTO 71 % (41-73); Platelet Count 269 K/mm3 (150-400); RDW Coefficient Variation 13.5 % (11.7-14.2); RDW Standard Deviation 45.9 fL (35.1-46.3); Red Blood Cell Count 4.87 M/mm3 (4.30-5.90); White Blood Cell Count 10.58 K/mm3 (4.00-11.30)
[2019-11-25 07:58] LABS: Alanine Aminotransfer (ALT/SGP 99 U/L (12-78); Albumin, Blood 3.6 g/dL (3.4-5.0); Albumin/Globulin Ratio 0.9 (0.8-1.8); Alk Phos 85 U/L (50-136); Anion Gap 8 mmol/L (6-16); Aspartate Aminotrans (AST/SGOT 63 U/L (12-37); Bilirubin, Total 0.2 mg/dL (0.1-1.0); Blood Urea Nitrogen 13 mg/dL (8-24); Bun/Creatinine Ratio 12.3 (12.0-20.0); CO2, Blood 27 mmol/L (21-32); Calcium, Blood 8.5 mg/dL (8.5-10.1); Chloride, Blood 104 mmol/L (98-108); Creatinine, Blood 1.06 mg/dL (0.60-1.20); Globulin, Blood 4.2 g/dL (2.2-4.0); Glomerular Filtration Rate >60 (60-); Glucose, Blood 125 mg/dL (70-99); Potassium, Blood 3.6 mmol/L (3.5-5.5); Sodium, Blood 139 mmol/L (136-145); Total Protein, Blood 7.8 g/dL (6.4-8.2)
--- NOTE | 2019-11-25 10:50 | NUR ---
PT RECENTLY TO ROOM FROM ER BY ETHEL. PT HAS LEFT LEG IMMOBILIZER IN PLACE. PT MOVED TO BED WITH MULT ASSIST WITH STAFF SUPPORTING HIS LEFT LEG. PT REPORTS PAIN TO L SIDE OF CHEST WHERE HE HAS SOME BROKEN RIBS. PT DENIES SHORTNESS OF BREATH OR DIFFICULTY BREATHING. REPORTS HX OF SMOKING AND DRINKING WITH LAST DRINK LAST NIGHT, WHICH HE STATED HAVING 4 SHOTS OF WHISKEY LAST NIGHT WHICH HE NORMALLY HAS 1-2/NIGHT. PT REPORTS VOIDING WITHOUT DIFFICULTY, REPORTS BEEN PASSING GAS AND HAD BM YESTERDAY. PT DENIES ANY THOUGHTS OF SUICIDE. PT DENIES ANY CONTACT WITH ANY KNOWN COVID CASE OR BEING OUTSIDE OF THE [place] RECENTLY. PT SPEAKING CLEAR SENTENCES. PPX4. WIGGLES TOES. PT HAS SMALL AMT OF MEDICATION IN POCKET WHICH HE STATES IS KLONIPIN FOR WHEN HE HAS AN ANXIETY ATTACK, PT CONFIRMED TO HAVE 4 PILLS WHICH WERE LOCKED IN THE DRAWER OUTSIDE HIS ROOM AFTER VERIFYING COUNT WITH PT AND CERTIFIED PROSTHETIST/ORTHOTIST H.L.. PT DECLINED WANTING SECURITY TO LOCK THEM IN SAFE FOR HIM. PT ASSISTED WITH ADL'S. LEFT LEG ELEVATED ON MULT PILLOWS. PT GIVEN CELL PHONE OUT OF HIS BELONGINGS. MONEY FROM PANTS POCKET INTO HIS WALLET WHICH IS IN HIS BELONGING BAG HIS PANTS HAVE BEEN CUT OFF OF HIM. PT ORIENTED TO CALL LIGHT. PT REPORTS NO SIGNS OF W/D AT THIS TIME. PT GIVEN MOUTH SWABS HE IS NPO. IV FLUSHED WITHOUT DIFFICULTY.
--- NOTE | 2019-11-25 11:31 | NUR ---
DR MATOS HERE TO SEE PT, DISCUSSED PT'S STATUS.
--- NOTE | 2019-11-25 11:32 | NUR ---
DR MATOS REPORTS PT MAY HAVE SMALL AMT OF ICE CHIPS NOW.
--- NOTE | 2019-11-25 14:18 | NUR ---
REPORT GIVEN TO Amparo SHE IS TAKING OVER CARE AT THIS TIME. PT RESTING QUIETLY AT THIS TIME.
--- NOTE | 2019-11-25 15:29 | NUR ---
DR. SCOTT IN TO CONSULT ON PT. NO PLAN FOR SUGERY UNTIL SWELLING TO LEG DECREASES. IMMOBILIZER ADJUSTED AND LEFT LEG ELEVATED ON PILLOWS.
--- NOTE | 2019-11-25 16:15 | NUR ---
SHIFT SUMMARY NO ACUTE CHANGES SINCE ASSUMING CARE. PT HAS BEEN DROWSY AND FALLS ASLEEP DURING CONVERSATIONS, BUT EASILY AWAKENS. PT REPORTS HE HAS SEVERE PAIN, BUT AT REST, HE APPEARS COMFORTABLE. PT MOSTLY COMPLAINS OF PAIN DURING MOVEMENT OR DEEP BREATHING/COUGHING. LEFT LEG IN IMMOBILIZER AND ELEVATED ON PILLOWS. 2L [address] NC [address]ACE PT DESATS DURING SLEEP AND AFTER RECEIVING NARCOTICS. PT RECEIVING TORADOL FOR PAIN AND MORPHINE ONLY FOR SEVERE PAIN. PT RUSSELL CLEAR LIQ. USING URINAL TO VOID. ORTHO CONSULTED TODAY. NO PLAN FOR SURGERY UNTIL SWELLING OF LEFT LEG GOES DOWN. PT USES CALL LIGHT APPROPRIATELY.
[2019-11-25] MEDS ORDERED: OMEP20ER PO (18:11)
[2019-11-25] MEDS ORDERED: CLON1 PO (18:12)
--- NOTE | 2019-11-25 22:56 | NUR ---
PT HAS BEEN VERY DROWSY SINCE START OF SHIFT AND WAS DROWSY ON DAY SHIFT PER DAY RN. WHEN ASKED, PT REPORTS HE HAD A LOT TO DRINK BEFORE HIS ACCIDENT BUT WAS UNCLEAR TO EXCALTY WHAT TIME HIS LAST DRINK WAS. PT REPORTS NO HX OF ETOH WITHDRAWAL; EDUCATED ABOUT S/S OF WITHDRAWAL. DENIES OTHER DRUG USE WITHIN THE LAST FEW DAYS. WCTM.
--- NOTE | 2019-11-26 04:36 | NUR ---
SHIFT SUMMARY PT IS A/O X4 BUT HAS BEEN DROWSY ALL SHIFT. PAIN MANAGED WITH PO PAIN MED AND TORADOL PER ORDERS. SEE EMAR. PT HAD STRONG PEDAL PULSES THROUGHOUT THE NIGHT. C/O DISCOMFORT WITH DEEP BREATHS. CURRENTLY USING 2L O2 NC. DISCUSSED ETOH WITHDRAWAL; PT DENIES HX OF WITHDRAWAL. HAS BEEN NPO SINCE MIDNIGHT IN CASE OF SURGERY TODAY. ASSISTED WTIH ADL'S PRN.
--- NOTE | 2019-11-26 09:50 | NUR ---
PLAN OF CARE DISCUSSED PLAN OF CARE WITH DR. JAIN THIS MORINING. HE REPORTED WE WILL CONTINUE TO WAIT FOR THE SWELLING IN THE PT'S LEG TO DECREASE BEFORE PT GOES TO SURGERY. PER DR. JAIN PT NO LONGER NEEDS TO BE NPO. PT REPORTS NUMBNESS IN HIS L FOOT; DR. JAIN NOTIFIED. LEFT LEG ELEVATED. WILL CONTINUE TO MONITOR.
--- NOTE | 2019-11-26 14:31 | NUR ---
DR. MATOS NOTIFIED THAT THIS PT DID NOT CLEAR THERAPY AND WILL NEED FUTHER WORK WITH THERAPY UNTIL HE WILL BE ABLE TO CARE FOR HIMSELF AT HOME.
--- NOTE | 2019-11-26 16:53 | NUR ---
SHIFT SUMMARY PAIN HAS BEEN MANAGED WITH NORCO AND TORADOL THIS SHIFT. PT HAS BEEN OOB X1 WITH THERAPY THIS SHIFT. HE IS A 2 PERSON MODERATE ASSIST FOR TRANSFERS. PT WILL NEED ADDITIONAL THERAPY BEFORE HE CAN RETURN HOME. DR. JAIN AND DR. MATOS ARE AWARE. PT HAS BEEN SOMNOLENT T/O THE DAY, HE DOES WAKE UP EASILY. PT HAS SLEEP APNEA, CPAP ORDERED FOR SLEEPING. VSS. WILL MONITOR UNTIL REPORT TO ONCOMING RN.
--- NOTE | 2019-11-27 04:40 | NUR ---
SHIFT SUMMARY PT A/OX4 W/VSS. IMMOBILIZER TO LEFT KNEE IN PLACE. ALL EXTREMITIES WARM/ PINK, DENIES N/T, AND ABLE TO WIGGLE FINGERS/TOES. 1+ EDEMA TO LEFT FOOT. UP IN CHAIR T/O ENTIRE SHIFT, PER PT REQUEST. BLE ELEVATED ON PILLOWS AND FOOTREST. PT ABLE TO ASSIST WITH REPOSITIONING WHILE IN CHAIR. DENIES SOB, REPORTS DISCOMFORT WITH DEEP BREATHING AT TIMES R/T RIB FX'S. CPAP WITH 2L BLEED AND CONT BIOX IN PLACE. PAIN MANAGED WITH 1 NORCO AND TORADOL. REPORTS PASSING FLATUS, DENIES N/V. USES URINAL WITHOUT DIFFICULTY. PT CURRENTLY IN CHAIR WITH CALL LIGHT IN REACH. WILL CONT TO MONITOR AND GIVE REPORT TO ONCOMING RN.
--- NOTE | 2019-11-27 10:29 | NUR ---
HOME MEDICATIONS REQUESTED FROM DR. CHAMBERLAIN.
--- NOTE | 2019-11-27 10:53 | NUR ---
PAIN MANAGEMENT PAIN IS STILL AN ISSUE DURING TRANSFERS. PT BECOMES PAINFUL AND CRIES WITH TRANSFERS. HE IS ALSO WEAK AND IS ONLY ABLE TO STAND AND PIVOT TRANSFER. DR. CHAMBERLAIN IS AWARE. WILL CONTINUE TO MONITOR.
--- NOTE | 2019-11-27 18:07 | NUR ---
ASSUMED PT CARE AT ABOUT 1115
--- NOTE | 2019-11-27 18:09 | NUR ---
SUMMARY: NO ACUTE CHANGE SINCE ASSUMED PT CARE. PT PAINFUL WITH TRANSFER FROM CHAIR TO BED. ABLE TO MAINTAIN WEIGHT BEARING ORDERS WITH STAND/PIVOT-PT SLOW AND PAINFUL. REPORTS MOST PAIN IS AT L RIBS. MEDICATED PER EMAR. PT HOME MEDS RESTARTED. VSS, A/O, USING CALL LIGHT. PT USING CPAP FOR NAPS, CONTINUING TO MONITOR SATS VIA OXIMETER. NO ACUTE SAFETY CONCERNS. WILL REPORT TO KEVIN CABRAL.
[2019-11-27] MEDS ORDERED: DYAZIDE 37.5-21 EACH PO (21:36)
--- NOTE | 2019-11-28 06:40 | NUR ---
SHIFT SUMMARY L TIBIAL PLAT FX, AND MULT LEFT RIB FX. PT PAINFUL DURING SHIFT, PAIN MANAGED PER EMAR. TOLERATED WELL. CPAP ON DURING SHIFT SATS STILL DROPPED OCCASIONALLY, CONT BIOX IN PLACE. SATS INTO LOW 80'S RAISED QUICKLY WHEN AWOKEN. SWEATING DURING SHIFT PT STATES NORMAL, TOLERATING PO WELL. VOIDED IN URINAL. IMMOBILZER IN PLACE. LEG ELEVATED ON MULTIPLE PILLOWS. PLAN TO CONTINUE WORKING WITH PT/OT AND REASSESS ON TUESDAY.
--- NOTE | 2019-11-28 10:25 | NUR ---
PT UP TO CHAIR AFTER WORKING WITH THERAPY EARLIER.
--- NOTE | 2019-11-28 17:50 | NUR ---
SHIFT SUMMARY PT EATING AND DRINKING, VOIDING. PASSING GAS. PT BEEN GIVEN BOWEL CARE. PT WORKED WITH BOTH PHYSICAL THERAPY AND OT TODAY. PT SAT UP IN CHAIR TODAY. PT BEEN PLEASANT AND COOPERATIVE.
--- NOTE | 2019-11-29 04:10 | NUR ---
SHIFT SUMMARY PT IS A/O X4. REPOSITIONS SELF SOMEWHAT IN BED AND HAS BEEN ASSISTED WITH REPOSITIONING PRN. PAIN MANAGED WITH PO PAIN MEDS AND TORADOL PER ORDERS. PT TOLERATING PO INTAKE AND VOIDING. IMMOBILIZER IN PLACE TO L LEG. BIOX IN PLACE THROUGH THE SHIFT AND PT HAS USED CPAP WHILE ASLEEP. ASSISTED WITH ADL'S PRN, NO ACUTE CHANGES OVERNIGHT.
[2019-11-29] MEDS ORDERED: HYDR1TAB94 PO (11:24)
--- NOTE | 2019-11-29 13:06 | NUR ---
OT HERE TO WORK WITH PT.
--- NOTE | 2019-11-29 15:45 | NUR ---
SHIFT SUMMARY PT EATING AND DRINKING, VOIDING, PASSING GAS. REPORTS FEELING THAT HE WILL HAVE BM SOON AND DOES NOT WISH TO HAVE ANY OTHER BOWEL CARE AT THIS TIME. PT REPORTS PAIN CONTROLLED ON PO PAIN MEDICATION. PT CLEARED FROM THERAPY TO GO HOME. PT WAITING FOR FAMILY TO HAVE APPR EQUIP WHICH THEY REPORT THEY WILL BE ABLE TO GET TODAY. IV OUT EARLIER TODAY. PT BEEN ASSISTED WITH BED BATH AND GETTING DRESSED. BELONGINGS ON BED.
--- NOTE | 2019-11-29 18:30 | NUR ---
DISCHARGE: PT EATING AND DRINKING, VOIDING, PASSING GAS. PT FAMILY PICKED UP SCRIPTS EARLIER FOR EQUIPMENT AND PAIN MEDICATION. PT REPORTS FAMILY ABLE TO GET WALKER AND W/C TO BORROW FROM FAMILY UNTIL OBTAINING NEW ONE'S FROM [facility]. PAPERWORK WAS FAXED TO [facility] EARLIER TODAY. PT REPORTS PAIN TOLERABLE ON PO PAIN MEDICATION. PT REPORTS UNDERSTANDING OF DISCHARGE INSTRUCTIONS UNCLUDING THERAPY EXCERCISES AND I/S. PT WAS CLEARED BY THERAPY TO GO HOME. PT AND FAMILY STATE ABLE TO GET PT INTO HOME WITHOUT HAVING ANY STEPS THAT W/C WILL GO STRAIGHT INTO HOUSE AND THAT PT FAMILY WAS ABLE TO GET SPECIAL RECLINER FOR PT. PT SENT WITH BELONGINGS INCLUDING HOME MEDICATIONS (VERIFIED COUNT BY OTHER RN H.L. AND PT).
== END 2019-11-29 18:47 | disposition home or self-care (01) | DRG 200 ==
LOC: ER 07:22 → SURS 07:23 → ER 09:08 → SURS 09:08
PROVIDERS: Emergency Medicine; ADMIT Surgery
DX: S27.0XXA Traumatic pneumothorax, initial encounter (principal); S22.42XA Multiple fractures of ribs, left side, initial encounter for closed fracture; S82.142A Displaced bicondylar fracture of left tibia, initial encounter for closed fracture; S27.321A Contusion of lung, unilateral, initial encounter; F17.210 Nicotine dependence, cigarettes, uncomplicated; V86.56XA Driver of dirt bike or motor/cross bike injured in nontraffic accident, initial encounter; Y92.9 Unspecified place or not applicable
CPT/HCPCS: 29505; 70450; 71045; 71260; 72125; 73562-LT; 73700; 74177; 80053; 85025; 86850; 86900; 86901; 94660; 94762; 96361; 96372; 96374; 96375; 96376; 97110; 97162; 97166; 97530; 97535; 99285-25; A9270-GY; G0378; J1650; J1885; J2270; J7120; Q9967

== ENCOUNTER 2019-12-06 14:08 | Inpatient (IN) | payer OTHER ==
[~2019-12-06] VITALS: Ht 177.8 cm; Wt 135.0 kg
[~2019-12-06 14:08] MED LIST changes: +CLON1 PO; +DYAZIDE 37.5-21 EACH PO; +OMEP20ER PO
[2019-12-10] MEDS ORDERED: FURO20 PO (15:10)
[2019-12-10] MEDS ORDERED: POTA10T PO (15:11)
[2019-12-10] MEDS ORDERED: TYLENOL (15:30)
[2019-12-10] MEDS ORDERED: Norco 5-325 Ta1 EACH PO (15:30)
[2019-12-10] MEDS ORDERED: IBUP400 (15:30)
[2019-12-10] MEDS ORDERED: OMEP20ER PO (15:31)
[2019-12-10] MEDS ORDERED: TRIAMTERENE-HCTZ PO (15:31)
--- NOTE | 2019-12-11 12:04 | NUR ---
Surgical site prepped with 2% Chlorhexidine cloth wipe. History, Chart, Medications and Allergies reviewed before start of procedure. Lungs clear T/O to Auscultation. Patient confirms NPO status and agrees with scheduled surgery. Pre-Op teaching done. Pt verbalizes understanding. Patient States Post-Procedure ride home has been arranged. Patient reports completing Chlorhexadine shower X2 prior to admission to hospital.
--- NOTE | 2019-12-11 15:29 | NUR ---
12/11/19 1529 Kingsley Flores 1518: STAT CHEST X-RAY DONE PER DR. DILLON'S REQUEST FOR SUSTAINED LOW SA02 RATE. PT W/O H/O OF KNOWN RIB FRACTURES AND PNEUMOTHORAX.
--- NOTE | 2019-12-11 17:46 | NUR ---
PT TRANSFERED TO PCU 6 PER ETHEL O2 AT 4L N/C RESP AT 22 E/U C\O LEG PAIN AT OP SITE OFF AND ON AT TIMES HE APPEARS TO BE RESTING WITH EYES CLOSED AND OTHER TIMES HE WILL YELL OUT HOW BAD IT HURTS. MEDICATING PRESCRIBED PERSONAL BELONGINGS TO PCU INCLUDING W/C WIGGLES TOES CAP REFILL WNL DRSG CDI ICE PACK TO OP SITE
--- NOTE | 2019-12-11 19:46 | NUR ---
PCU DISCHARGE SUMMARY PATIENT ARRIVED TO UNIT VIA GURNEY - TRANSFERED OVER TO UNIT VIA 4 NURSE ASSIT - TRANSFER VERY PAINFUL FOR PATIENT. LEFT LEG ICED AND ELEVATED. IV FLUIDS GIVEN PER EMAR. SPOKE WITH MD TURCIOS REGARDING XRAY ON PATIENTS CHART - NEW ORDERS GIVEN FOR HOSPITALIST AND PULMONARY CONSULTS + STAT CT CHEST IMAGING. PATIENTS OXYGEN INCREASED FROM 4 TO 6 LPM NC - MD AZAR NOTIFIED. MD AZAR NOTIFIED OF CT CHEST COMPLETION. REPORTED TO NOC SHIFT RN ROBI. PATIENT REMAINS STABLE WITH NO ACUTE CHANGES NOTED. NSR IN THE 80'S PER PIT INSPECTOR. DISCUSSED BLOOD PRESSURE MANAGEMENT WITH MD NIX - SEE EMAR ORDERS. CALL LIGHT W/I REACH.
[2019-12-11 19:55] LABS: BASOPHILS ABSOLUTE AUTO 0.03 K/mm3 (0.00-0.23); BASOPHILS PERCENT AUTO 0 % (0-2); EOSINOPHILS PERCENT AUTO 0 % (0-6); Hematocrit 40.5 % (37.0-53.0); Hemoglobin 13.1 g/dL (13.5-17.5); IMMATURE GRAN ABSOLUTE AUTO 0.08 K/mm3 (0.00-0.10); IMMATURE GRAN PERCENT AUTO 1 % (0-1); LYMPHOCYTES ABSOLUTE AUTO 1.27 K/mm3 (0.84-5.20); LYMPHOCYTES PERCENT AUTO 8 % (21-46); MONOCYTES ABSOLUTE AUTO 0.72 K/mm3 (0.16-1.47); MONOCYTES PERCENT AUTO 4 % (4-13); Mean Corpuscular HGB 30.2 pg (26.0-34.0); Mean Corpuscular HGB Conc 32.3 g/dL (31.5-36.5); Mean Corpuscular Volume 93 fL (80-100); Mean Platelet Volume 8.6 fL (9.1-12.4); NEUTROPHILS ABSOLUTE AUTO 14.85 K/mm3 (1.96-9.15); NEUTROPHILS PERCENT AUTO 88 % (41-73); Platelet Count 537 K/mm3 (150-400); RDW Coefficient Variation 13.4 % (11.7-14.2); RDW Standard Deviation 46.1 fL (35.1-46.3); Red Blood Cell Count 4.34 M/mm3 (4.30-5.90); White Blood Cell Count 16.95 K/mm3 (4.00-11.30)
[2019-12-11 20:09] LABS: Prothrombin Time Results 10.7 Sec (9.7-11.5)
[2019-12-11 20:16] LABS: Alanine Aminotransfer (ALT/SGP 110 U/L (12-78); Albumin, Blood 2.8 g/dL (3.4-5.0); Albumin/Globulin Ratio 0.7 (0.8-1.8); Alk Phos 167 U/L (50-136); Anion Gap 6 mmol/L (6-16); Aspartate Aminotrans (AST/SGOT 67 U/L (12-37); Bilirubin, Total 0.5 mg/dL (0.1-1.0); Blood Urea Nitrogen 17 mg/dL (8-24); Bun/Creatinine Ratio 21.4 (12.0-20.0); CO2, Blood 27 mmol/L (21-32); Chloride, Blood 104 mmol/L (98-108); Creatinine, Blood 0.79 mg/dL (0.60-1.20); Globulin, Blood 4.3 g/dL (2.2-4.0); Glomerular Filtration Rate >60 (60-); Glucose, Blood 114 mg/dL (70-99); Potassium, Blood 4.5 mmol/L (3.5-5.5); Sodium, Blood 137 mmol/L (136-145); Total Protein, Blood 7.1 g/dL (6.4-8.2)
[2019-12-12 03:52] LABS: BASOPHILS ABSOLUTE AUTO 0.03 K/mm3 (0.00-0.23); BASOPHILS PERCENT AUTO 0 % (0-2); EOSINOPHILS ABSOLUTE AUTO 0.01 K/mm3 (0.00-0.68); EOSINOPHILS PERCENT AUTO 0 % (0-6); Hematocrit 40.6 % (37.0-53.0); Hemoglobin 12.9 g/dL (13.5-17.5); IMMATURE GRAN ABSOLUTE AUTO 0.08 K/mm3 (0.00-0.10); IMMATURE GRAN PERCENT AUTO 1 % (0-1); LYMPHOCYTES ABSOLUTE AUTO 1.98 K/mm3 (0.84-5.20); LYMPHOCYTES PERCENT AUTO 12 % (21-46); MONOCYTES ABSOLUTE AUTO 1.11 K/mm3 (0.16-1.47); MONOCYTES PERCENT AUTO 7 % (4-13); Mean Corpuscular HGB 29.7 pg (26.0-34.0); Mean Corpuscular HGB Conc 31.8 g/dL (31.5-36.5); Mean Corpuscular Volume 94 fL (80-100); Mean Platelet Volume 9.1 fL (9.1-12.4); NEUTROPHILS ABSOLUTE AUTO 12.95 K/mm3 (1.96-9.15); NEUTROPHILS PERCENT AUTO 80 % (41-73); Platelet Count 552 K/mm3 (150-400); RDW Coefficient Variation 13.3 % (11.7-14.2); RDW Standard Deviation 45.9 fL (35.1-46.3); Red Blood Cell Count 4.34 M/mm3 (4.30-5.90); White Blood Cell Count 16.16 K/mm3 (4.00-11.30)
[2019-12-12 04:20] LABS: Total Protein, Blood 7.1 g/dL (6.4-8.2)
--- NOTE | 2019-12-12 05:20 | NUR ---
SHIFT SUMMARY: PATIENT C/O CONTINUOUS PAIN IN LEFT HIP AND LEG WITH INTERMITTENT PAIN IN LEFT AXILLARY AREA, ICE AND MEDICATIONS ADMINISTERED (SEE EMAR). LEFT LEG ELEVATED AND SCD ON RIGHT LEG ONLY PER MD ORDERS. PATIENT EXPERIENCING FREQUENT PAUSES IN RESPERATION WHILE SLEEPING, O2 SATURATION DROPPING ACCORDINGLY AND QUICKLY RISING TO >90% AGAIN SOON PATIENT BEGAN NORMAL BREATHING PATERN AGAIN. PATIENT SBP RANGING AROUND 160 WHEN PATIENT IN PAIN BUT LOWERING WITH PAIN MEDICATION ADMINISTRATION. ALL OTHER VSS, CALL LIGHT WITHIN REACH, PATIENT COMPLIANT WITH CARE AND BED LOW AND LOCKED.
--- NOTE | 2019-12-12 07:41 | NUR ---
Bedside report received from Christi Spears RN. The pt is having a lot of pain in his left leg/knee. States he rates it 8/10 at this time.
--- NOTE | 2019-12-12 11:14 | NUR ---
1055 The pt was taken by Jose Guadalupe from Xray for his USS-guided thoracentesis
[2019-12-12 12:46] LABS: Automated BF RBC Count 0.147 M/mm3 (0-0); Automated BF WBC Count 1.527 K/mm3 (0-999); Body Fluid WBC Count 1527 /mm3 (0-999); RBC Count, Body Fluid 147000 /mm3 (0-0)
[2019-12-12 12:49] LABS: Glucose, Body Fluid 115 mg/dL; Lactate Dehydrogenase, Body Fl 216 U/L; Protein, Body Fluid 4.5 g/dL
[2019-12-12 12:51] LABS: pH, Body Fluid 7.4
--- NOTE | 2019-12-12 12:56 | NUR ---
Evangelina returned from the USS-guided thoracentesis; reported to me was a removal of 1200 cc of fluid. His spo2 is 97% upon his return, with 3 l/min Oxygen delivery by nasal cannula. He states that he is able to take a deep breath, but feels some "crackling" on the left side. Respirations are noted to be even, unlabored. He was medicated for pain at this time as well, after he had eaten his lunch. Encouraged the pt to reposition himself at least every 1-2 hours to prevent constant pressure on the same areas, which I explained to him could lead to a pressure ulcer development. He verbalized understanding of this, and said he could turn himself from right side to back and vice versa independently.
[2019-12-12 13:33] LABS: Appearance, Body Fluid Bloody (Clear); Color, Body Fluid Red (None-Yellow); Total Cell Count, Body Fluid 100
--- NOTE | 2019-12-12 15:14 | NUR ---
Evangelina worked with the therapists directly after getting IV dilaudid for pain at approx 2 pm. He is now lying in bed, darkened room and falls asleep when he is alone. When awakened, he states that his pain in the left leg is 7/10. Obviously less than optimal pain control at this time, probably also aggravated some by his work with therapists today. He will receive the higher ordered dose of pain medication at the next available opportunity per ordered time frame.
--- NOTE | 2019-12-12 17:47 | NUR ---
The pt states that the most recent dose of pain medication has just started to be effective. States that the pain woke him up earlier. I had checked in on him at approx 3 pm, 4 pm, and 4:30 pm, but he was asleep and snoring loudly, so he was not awakened at that time. Now he has finished eating dinner, and states that his pain is getting better. States that before that it was just a terrible, throbbing pain, 04/10, States that the ice was making it hurt so he had the nurse take it off.
--- NOTE | 2019-12-12 18:17 | NUR ---
The pt said that he gave me permission to talk with his mother and give an update over the phone. I spoke with her and gave her an update on his treatment and current condition.
[2019-12-13 04:10] LABS: BASOPHILS ABSOLUTE AUTO 0.07 K/mm3 (0.00-0.23); BASOPHILS PERCENT AUTO 1 % (0-2); EOSINOPHILS ABSOLUTE AUTO 0.23 K/mm3 (0.00-0.68); EOSINOPHILS PERCENT AUTO 2 % (0-6); Hematocrit 39.8 % (37.0-53.0); Hemoglobin 12.6 g/dL (13.5-17.5); IMMATURE GRAN ABSOLUTE AUTO 0.06 K/mm3 (0.00-0.10); IMMATURE GRAN PERCENT AUTO 1 % (0-1); LYMPHOCYTES ABSOLUTE AUTO 2.54 K/mm3 (0.84-5.20); LYMPHOCYTES PERCENT AUTO 21 % (21-46); MONOCYTES ABSOLUTE AUTO 1.23 K/mm3 (0.16-1.47); MONOCYTES PERCENT AUTO 10 % (4-13); Mean Corpuscular HGB 30.1 pg (26.0-34.0); Mean Corpuscular HGB Conc 31.7 g/dL (31.5-36.5); Mean Corpuscular Volume 95 fL (80-100); Mean Platelet Volume 9.2 fL (9.1-12.4); NEUTROPHILS ABSOLUTE AUTO 7.92 K/mm3 (1.96-9.15); NEUTROPHILS PERCENT AUTO 66 % (41-73); Platelet Count 523 K/mm3 (150-400); RDW Coefficient Variation 13.4 % (11.7-14.2); Red Blood Cell Count 4.19 M/mm3 (4.30-5.90); White Blood Cell Count 12.05 K/mm3 (4.00-11.30)
--- NOTE | 2019-12-13 04:27 | NUR ---
SHIFT SUMMARY: PATIENT STILL C/O FREQUENT PAIN BUT TRYING TO USE THE DILAUDID LESS OFTEN. PATIENT EDUCATED ON NECESSITY OF ABILITY TO PROPERLY MANAGE PAIN AT HOME WITHOUT IV PAIN MEDICATIONS. PATIENT VERBALIZED UNDERSTANDING, ICE PACKS INTERMITTENTLY USED. PATIENT COMPLIANT WITH CARE, CALL LIGHT WITHIN REACH, BED LOW AND LOCKED. PATIENT CONTINUES TO INTERMITTENTLY DROP HIS O2 SATURATION WITH IRREGULAR BREATHING PATTERN AT NIGHT, 2L NC USED FOR SUPPORT AT THIS TIME. PATIENT ON CONTINUOUS O2 MONITORING, ALL OTHER VSS.
--- NOTE | 2019-12-13 07:38 | NUR ---
Evangelina is sleeping soundly, snoring and wearing oxygen at 2 l/min, placed in his mouth. Vital signs are stable. He awakens easily when I place the blood pressure cuff, but falls asleep again while it is activating. No c/o pain at this time.
--- NOTE | 2019-12-13 08:58 | NUR ---
Dr. Cardoza here to see the pt; spoke with him about the pt's pain control medication efficacy, plan for discharge with physical therapy, occupational therapy, and possibly assistance with ADLs and bathing, etc. Doctor also says that he will give the pt a prescription to follow up with a chest xray in a couple of weeks as an outpatient.
[2019-12-13] MEDS ORDERED: DOCU100 PO (10:12)
[2019-12-13] MEDS ORDERED: ASPI81CH PO (10:45)
--- NOTE | 2019-12-13 11:44 | NUR ---
Discharge instructions were reviewed with the patient. He was given two hand written prescriptions from dr. Cardoza, one for an xray in 2 weeks and the other for pain medications. The pt was assisted to dress and collect his belongings by the PCT, Heather, and taken outside in his own wheelchair by Heather to where his ride was waiting at the white tent outside of the ED.
== END 2019-12-13 11:46 | disposition home health service (06) | DRG 981 ==
LOC: PRE IP 12-11 11:00 → SURS 12-11 11:23 → PCU 12-11 11:23
PROVIDERS: Hospitalist; Internal Medicine; Internal Medicine Critical Care Medicine; ADMIT Orthopaedic Surgery
PROC: 0QSH34Z Reposition Left Tibia with Internal Fixation Device, Percutaneous Approach (ICD-10-PCS; principal; 2019-12-11 11:00)
PROC: 0W9B3ZZ Drainage of Left Pleural Cavity, Percutaneous Approach (ICD-10-PCS; 2019-12-12)
DX: S27.1XXA Traumatic hemothorax, initial encounter (principal); J96.01 Acute respiratory failure with hypoxia; S82.142A Displaced bicondylar fracture of left tibia, initial encounter for closed fracture; S22.42XA Multiple fractures of ribs, left side, initial encounter for closed fracture; Z68.41 Body mass index [BMI] 40.0-44.9, adult; J98.11 Atelectasis; J90 Pleural effusion, not elsewhere classified; Z87.891 Personal history of nicotine dependence; I10 Essential (primary) hypertension; V29.9XXA Motorcycle rider (driver) (passenger) injured in unspecified traffic accident, initial encounter; Y92.9 Unspecified place or not applicable
CPT/HCPCS: 32555; 36415; 71045; 71260; 73560-LT; 80053; 82945; 83615; 83986; 84155; 84157; 85025; 85610; 89051; 94762; 97110; 97162; 97165; C1713; J0330; J0690; J1100; J1170; J2250; J2405; J2704; J3010; J7050; J7120; Q9967

== ENCOUNTER 2020-08-12 08:41 | Emergency (ER) | payer OTHER ==
[~2020-08-12] VITALS: Ht 177.8 cm; Wt 140.6 kg
[~2020-08-12 08:41] MED LIST changes: +AMOCLA875 PO; +ASPI81CH PO; +IBUP400; +POTA10T PO; +Percocet 10-321 EACH PO; +SULTRIDS PO; +TRIAMTERENE-HCTZ PO; +TYLENOL
[2020-08-12 09:10] LABS: BASOPHILS ABSOLUTE AUTO 0.06 K/mm3 (0.00-0.23); BASOPHILS PERCENT AUTO 1 % (0-2); EOSINOPHILS PERCENT AUTO 3 % (0-6); Hematocrit 49.1 % (37.0-53.0); Hemoglobin 16.1 g/dL (13.5-17.5); IMMATURE GRAN ABSOLUTE AUTO 0.03 K/mm3 (0.00-0.10); IMMATURE GRAN PERCENT AUTO 0 % (0-1); LYMPHOCYTES ABSOLUTE AUTO 4.41 K/mm3 (0.84-5.20); LYMPHOCYTES PERCENT AUTO 42 % (21-46); MONOCYTES ABSOLUTE AUTO 0.73 K/mm3 (0.16-1.47); MONOCYTES PERCENT AUTO 7 % (4-13); Mean Corpuscular HGB 30.8 pg (26.0-34.0); Mean Corpuscular HGB Conc 32.8 g/dL (31.5-36.5); Mean Corpuscular Volume 94 fL (80-100); Mean Platelet Volume 9.5 fL (9.1-12.4); NEUTROPHILS ABSOLUTE AUTO 5.05 K/mm3 (1.96-9.15); NEUTROPHILS PERCENT AUTO 48 % (41-73); Platelet Count 331 K/mm3 (150-400); RDW Coefficient Variation 13.4 % (11.7-14.2); RDW Standard Deviation 45.7 fL (35.1-46.3); Red Blood Cell Count 5.23 M/mm3 (4.30-5.90); White Blood Cell Count 10.58 K/mm3 (4.00-11.30)
[2020-08-12 09:40] LABS: Alanine Aminotransfer (ALT/SGP 142 U/L (12-78); Albumin, Blood 3.8 g/dL (3.4-5.0); Albumin/Globulin Ratio 0.8 (0.8-1.8); Alk Phos 100 U/L (50-136); Anion Gap 10 mmol/L (6-16); Aspartate Aminotrans (AST/SGOT 69 U/L (12-37); Bilirubin, Total 0.3 mg/dL (0.1-1.0); Blood Urea Nitrogen 9 mg/dL (8-24); Bun/Creatinine Ratio 10.4 (12.0-20.0); CO2, Blood 22 mmol/L (21-32); Calcium, Blood 8.7 mg/dL (8.5-10.1); Chloride, Blood 109 mmol/L (98-108); Creatinine, Blood 0.87 mg/dL (0.60-1.20); Globulin, Blood 4.7 g/dL (2.2-4.0); Glomerular Filtration Rate >60 (60-); Glucose, Blood 111 mg/dL (70-99); Potassium, Blood 3.5 mmol/L (3.5-5.5); Sodium, Blood 141 mmol/L (136-145); Total Protein, Blood 8.5 g/dL (6.4-8.2); Troponin I <0.015 ng/mL (0.000-0.040)
[2020-08-12] MEDS ORDERED: OMEP20ER PO (11:16)
[2020-08-12] MEDS ORDERED: CEPH500 PO (11:21)
== END 2020-08-12 12:30 | disposition home or self-care (01) ==
LOC: ER 08:41
PROVIDERS: Emergency Medicine
DX: R11.2 Nausea with vomiting, unspecified (principal); R10.9 Unspecified abdominal pain; L03.115 Cellulitis of right lower limb; R07.9 Chest pain, unspecified; I10 Essential (primary) hypertension; F17.210 Nicotine dependence, cigarettes, uncomplicated; Z79.899 Other long term (current) drug therapy; Z87.442 Personal history of urinary calculi
CPT/HCPCS: 36415; 71045; 80053; 83690; 84484; 85025; 86850; 86900; 86901; 93005; 93010; 96361; 96374; 96375; 99285-25; C9113; J2405; J3010; J7030

== ENCOUNTER 2021-02-08 18:43 | Emergency (ER) | payer OTHER ==
[~2021-02-08] VITALS: Ht 177.8 cm; Wt 140.6 kg
== END 2021-02-08 19:14 | disposition left against medical advice (07) ==
LOC: ER 18:43
DX: M79.89 Other specified soft tissue disorders (principal); Z53.21 Procedure and treatment not carried out due to patient leaving prior to being seen by health care provider
CPT/HCPCS: 99282

== ENCOUNTER 2021-03-03 05:39 | Emergency (ER) | payer OTHER ==
[~2021-03-03] VITALS: Ht 172.7 cm; Wt 136.1 kg
[2021-03-03] MEDS ORDERED: FURO40 PO (05:50)
[2021-03-03] MEDS ORDERED: HYDCHL25 PO (05:51)
[2021-03-03 06:45] LABS: Chloride (POC) 102 mmol/L (98-108); Creatinine (POC) 0.9 mg/dL (0.8-1.3); Glucose (ISTAT POC) 105 mg/dL (70-99); Hemoglobin (POC) 14.3 g/dL (13.5-17.5); Potassium (POC) 3.9 mmol/L (3.5-5.5); Sodium (POC) 139 mmol/L (135-148); Total CO2 (POC) 25 mmol/L (21-32)
== END 2021-03-03 07:20 | disposition home or self-care (01) ==
LOC: ER 05:39
PROVIDERS: Emergency Medicine
DX: T40.2X1A Poisoning by other opioids, accidental (unintentional), initial encounter (principal); T51.0X1A Toxic effect of ethanol, accidental (unintentional), initial encounter; F11.129 Opioid abuse with intoxication, unspecified; F17.210 Nicotine dependence, cigarettes, uncomplicated; I87.2 Venous insufficiency (chronic) (peripheral); F10.129 Alcohol abuse with intoxication, unspecified; I10 Essential (primary) hypertension; Z79.899 Other long term (current) drug therapy
CPT/HCPCS: 80047; 85014; 99284; A9270; J7030

== ENCOUNTER 2021-04-28 22:14 | Emergency (ER) | payer OTHER ==
[~2021-04-28] VITALS: Ht 177.8 cm; Wt 138.3 kg
[~2021-04-28 22:14] MED LIST changes: +FURO40 PO; +HYDCHL25 PO
[2021-04-28] MEDS ORDERED: BENADRYL25 MG PO (23:23)
[2021-04-28] MEDS ORDERED: Pepcid20 MG PO (23:23)
[2021-04-28] MEDS ORDERED: METPRE4DP PO (23:23)
== END 2021-04-28 23:47 | disposition home or self-care (01) ==
LOC: ER 22:14
DX: L50.8 Other urticaria (principal); I10 Essential (primary) hypertension; F17.210 Nicotine dependence, cigarettes, uncomplicated; Z79.899 Other long term (current) drug therapy
CPT/HCPCS: 99283; A9270; J7512

== ENCOUNTER 2021-06-13 01:11 | Inpatient (IN) | payer OTHER ==
[~2021-06-13] VITALS: Ht 177.8 cm; Wt 138.3 kg
[~2021-06-13 01:11] MED LIST changes: +BENADRYL25 MG PO; +METPRE4DP PO; +Pepcid20 MG PO
[2021-06-13] MEDS ORDERED: OMEP20ER PO (01:41)
[2021-06-13 02:36] LABS: BASOPHILS ABSOLUTE AUTO 0.03 K/mm3 (0.00-0.23); BASOPHILS PERCENT AUTO 1 % (0-2); EOSINOPHILS PERCENT AUTO 3 % (0-6); Hematocrit 44.2 % (37.0-53.0); Hemoglobin 14.6 g/dL (13.5-17.5); IMMATURE GRAN ABSOLUTE AUTO 0.01 K/mm3 (0.00-0.10); IMMATURE GRAN PERCENT AUTO 0 % (0-1); LYMPHOCYTES PERCENT AUTO 28 % (21-46); MONOCYTES ABSOLUTE AUTO 0.69 K/mm3 (0.16-1.47); MONOCYTES PERCENT AUTO 11 % (4-13); Mean Corpuscular HGB 31.7 pg (26.0-34.0); Mean Corpuscular Volume 96 fL (80-100); Mean Platelet Volume 9.7 fL (9.1-12.4); NEUTROPHILS ABSOLUTE AUTO 3.61 K/mm3 (1.96-9.15); NEUTROPHILS PERCENT AUTO 57 % (41-73); Platelet Count 265 K/mm3 (150-400); RDW Coefficient Variation 13.1 % (11.7-14.2); RDW Standard Deviation 47.1 fL (35.1-46.3); White Blood Cell Count 6.34 K/mm3 (4.00-11.30)
[2021-06-13 02:46] LABS: Anion Gap 4 mmol/L (6-16); Blood Urea Nitrogen 11 mg/dL (8-24); Bun/Creatinine Ratio 11.4 (12.0-20.0); CO2, Blood 29 mmol/L (21-32); Calcium, Blood 8.4 mg/dL (8.5-10.1); Chloride, Blood 107 mmol/L (98-108); Creatinine, Blood 0.96 mg/dL (0.60-1.20); Glomerular Filtration Rate >60 (60-); Glucose, Blood 113 mg/dL (70-99); Potassium, Blood 4.1 mmol/L (3.5-5.5); Sodium, Blood 140 mmol/L (136-145)
[2021-06-13 05:32] LABS: SARS-Cov-2 (COVID-19) PCR, MMC NEGATIVE (NEGATIVE)
[2021-06-13 06:16] LABS: BASOPHILS ABSOLUTE AUTO 0.05 K/mm3 (0.00-0.23); BASOPHILS PERCENT AUTO 1 % (0-2); EOSINOPHILS PERCENT AUTO 3 % (0-6); Hematocrit 46.8 % (37.0-53.0); Hemoglobin 15.3 g/dL (13.5-17.5); IMMATURE GRAN ABSOLUTE AUTO 0.01 K/mm3 (0.00-0.10); IMMATURE GRAN PERCENT AUTO 0 % (0-1); LYMPHOCYTES ABSOLUTE AUTO 2.12 K/mm3 (0.84-5.20); LYMPHOCYTES PERCENT AUTO 32 % (21-46); MONOCYTES ABSOLUTE AUTO 0.67 K/mm3 (0.16-1.47); MONOCYTES PERCENT AUTO 10 % (4-13); Mean Corpuscular HGB 31.6 pg (26.0-34.0); Mean Corpuscular HGB Conc 32.7 g/dL (31.5-36.5); Mean Corpuscular Volume 97 fL (80-100); Mean Platelet Volume 9.4 fL (9.1-12.4); NEUTROPHILS ABSOLUTE AUTO 3.58 K/mm3 (1.96-9.15); NEUTROPHILS PERCENT AUTO 54 % (41-73); Platelet Count 252 K/mm3 (150-400); RDW Coefficient Variation 13.1 % (11.7-14.2); RDW Standard Deviation 47.1 fL (35.1-46.3); Red Blood Cell Count 4.84 M/mm3 (4.30-5.90); White Blood Cell Count 6.63 K/mm3 (4.00-11.30)
[2021-06-13 06:57] LABS: Anion Gap 5 mmol/L (6-16); Blood Urea Nitrogen 10 mg/dL (8-24); Bun/Creatinine Ratio 9.7 (12.0-20.0); CO2, Blood 29 mmol/L (21-32); Calcium, Blood 8.5 mg/dL (8.5-10.1); Chloride, Blood 106 mmol/L (98-108); Creatinine, Blood 1.03 mg/dL (0.60-1.20); Glomerular Filtration Rate >60 (60-); Glucose, Blood 103 mg/dL (70-99); Potassium, Blood 4.5 mmol/L (3.5-5.5); Sodium, Blood 140 mmol/L (136-145)
[2021-06-13] MEDS ORDERED: Cleocin HCl150 MG PO (12:31)
[2021-06-13] MEDS ORDERED: PROBIOTIC1 EA13 PO (12:32)
[2021-06-20] MEDS ORDERED: Roxicodone5 MG PO (20:20)
[2021-06-20] MEDS ORDERED: IBUP600 PO (20:20)
[2021-06-23] MEDS ORDERED: SULFAMETHOXAZO1 EAC1 PO (04:18)
[2021-06-23] MEDS ORDERED: Keflex500 MG PO (05:05)
[2021-06-23] MEDS ORDERED: Vibramycin100 MG PO (05:05)
== END 2021-06-13 12:49 | disposition home or self-care (01) | DRG 603 ==
LOC: ER 01:11 → ERHOLD 03:57
PROVIDERS: Student in an Organized Health Care Education/Training Program; ADMIT Internal Medicine
DX: L03.115 Cellulitis of right lower limb (principal); Z68.41 Body mass index [BMI] 40.0-44.9, adult; Z20.822 Contact with and (suspected) exposure to COVID-19; L03.116 Cellulitis of left lower limb; Z66 Do not resuscitate; I10 Essential (primary) hypertension; E66.9 Obesity, unspecified; F10.20 Alcohol dependence, uncomplicated; Z28.21 Immunization not carried out because of patient refusal; G47.33 Obstructive sleep apnea (adult) (pediatric); F17.210 Nicotine dependence, cigarettes, uncomplicated; Z59.00 Homelessness unspecified; Z90.49 Acquired absence of other specified parts of digestive tract; Z98.890 Other specified postprocedural states; Z79.899 Other long term (current) drug therapy
CPT/HCPCS: 36415; 80048; 83605; 85025; 87040; 96365; 96372; 96375; 96376; 99284-25; A9270; G0378; J1650; J1940; J7030; U0004

== ENCOUNTER 2021-08-20 00:48 | Emergency (ER) | payer OTHER ==
[~2021-08-20 00:48] MED LIST changes: +Cleocin HCl150 MG PO; +Keflex500 MG PO; +PROBIOTIC1 EA13 PO; +SULFAMETHOXAZO1 EAC1 PO; +Vibramycin100 MG PO
== END 2021-08-20 01:05 | disposition left against medical advice (07) ==
LOC: ER 00:48
DX: Z53.21 Procedure and treatment not carried out due to patient leaving prior to being seen by health care provider (principal)

== ENCOUNTER → 2021-11-30 | Outpatient (CLI) | payer OTHER ==
[2021-11-30 17:24] LABS: BASOPHILS ABSOLUTE AUTO 0.04 K/mm3 (0.00-0.23); BASOPHILS PERCENT AUTO 1 % (0-2); EOSINOPHILS ABSOLUTE AUTO 0.19 K/mm3 (0.00-0.68); EOSINOPHILS PERCENT AUTO 2 % (0-6); Hematocrit 46.9 % (37.0-53.0); IMMATURE GRAN ABSOLUTE AUTO 0.02 K/mm3 (0.00-0.10); IMMATURE GRAN PERCENT AUTO 0 % (0-1); LYMPHOCYTES ABSOLUTE AUTO 2.72 K/mm3 (0.84-5.20); LYMPHOCYTES PERCENT AUTO 31 % (21-46); MONOCYTES ABSOLUTE AUTO 0.61 K/mm3 (0.16-1.47); MONOCYTES PERCENT AUTO 7 % (4-13); Mean Corpuscular HGB 31.8 pg (26.0-34.0); Mean Corpuscular HGB Conc 34.1 g/dL (31.5-36.5); Mean Corpuscular Volume 93 fL (80-100); NEUTROPHILS ABSOLUTE AUTO 5.15 K/mm3 (1.96-9.15); NEUTROPHILS PERCENT AUTO 59 % (41-73); Platelet Count 272 K/mm3 (150-400); RDW Coefficient Variation 13.3 % (11.7-14.2); RDW Standard Deviation 45.4 fL (35.1-46.3); Red Blood Cell Count 5.03 M/mm3 (4.30-5.90); White Blood Cell Count 8.73 K/mm3 (4.00-11.30)
[2021-11-30 17:31] LABS: Alanine Aminotransfer (ALT/SGP 111 U/L (12-78); Albumin, Blood 3.8 g/dL (3.4-5.0); Albumin/Globulin Ratio 0.9 (0.8-1.8); Alk Phos 92 U/L (40-126); Anion Gap 13 mmol/L (6-16); Aspartate Aminotrans (AST/SGOT 53 U/L (12-37); Bilirubin, Total 0.2 mg/dL (0.1-1.0); Blood Urea Nitrogen 9 mg/dL (8-24); Bun/Creatinine Ratio 9.8 (12.0-20.0); CO2, Blood 25 mmol/L (21-32); Calcium, Blood 8.5 mg/dL (8.5-10.1); Chloride, Blood 101 mmol/L (98-108); Creatinine, Blood 0.92 mg/dL (0.60-1.20); Globulin, Blood 4.3 g/dL (2.2-4.0); Glomerular Filtration Rate >60 (60-); Glucose, Blood 99 mg/dL (70-99); Potassium, Blood 3.9 mmol/L (3.5-5.5); Sodium, Blood 139 mmol/L (136-145); Total Protein, Blood 8.1 g/dL (6.4-8.2)
== END ==
LOC: LAB 17:15 → LAB SHORT 17:15
PROVIDERS: Physician Assistant
DX: R06.00 Dyspnea, unspecified (principal); R60.9 Edema, unspecified; Z72.51 High risk heterosexual behavior
CPT/HCPCS: 80053; 83880; 85025

== ENCOUNTER 2022-05-31 03:03 | Emergency (ER) | payer OTHER ==
[~2022-05-31] VITALS: Ht 172.7 cm; Wt 154.2 kg
[2022-05-31] MEDS ORDERED: BUPROPION HCL200 M1 PO (03:34)
[2022-05-31] MEDS ORDERED: FUROSEMIDE40 MG PO (03:34)
[2022-05-31] MEDS ORDERED: IBUP100S (03:34)
[2022-05-31 04:08] LABS: BASOPHILS ABSOLUTE AUTO 0.06 K/mm3 (0.00-0.23); BASOPHILS PERCENT AUTO 1 % (0-2); EOSINOPHILS ABSOLUTE AUTO 0.25 K/mm3 (0.00-0.68); EOSINOPHILS PERCENT AUTO 3 % (0-6); Hematocrit 43.6 % (37.0-53.0); Hemoglobin 14.4 g/dL (13.5-17.5); IMMATURE GRAN ABSOLUTE AUTO 0.02 K/mm3 (0.00-0.10); IMMATURE GRAN PERCENT AUTO 0 % (0-1); LYMPHOCYTES ABSOLUTE AUTO 3.03 K/mm3 (0.84-5.20); LYMPHOCYTES PERCENT AUTO 39 % (21-46); MONOCYTES ABSOLUTE AUTO 1.07 K/mm3 (0.16-1.47); MONOCYTES PERCENT AUTO 14 % (4-13); Mean Corpuscular HGB 31.8 pg (26.0-34.0); Mean Corpuscular Volume 96 fL (80-100); Mean Platelet Volume 9.7 fL (9.1-12.4); NEUTROPHILS ABSOLUTE AUTO 3.43 K/mm3 (1.96-9.15); NEUTROPHILS PERCENT AUTO 44 % (41-73); Platelet Count 251 K/mm3 (150-400); RDW Coefficient Variation 13.1 % (11.7-14.2); Red Blood Cell Count 4.53 M/mm3 (4.30-5.90); White Blood Cell Count 7.86 K/mm3 (4.00-11.30)
[2022-05-31 04:26] LABS: Bun/Creatinine Ratio 6.8 (12.0-20.0); C-REACTIVE PROTEIN, EXT RANGE 2.97 mg/dL (0.000-0.300); Calcium, Blood 8.4 mg/dL (8.5-10.1); Creatinine, Blood 0.88 mg/dL (0.60-1.20); Potassium, Blood 3.8 mmol/L (3.5-5.5)
[2022-05-31] MEDS ORDERED: Keflex500 MG PO (05:03)
== END 2022-05-31 05:12 | disposition home or self-care (01) ==
LOC: ER 03:03
PROVIDERS: Emergency Medicine
DX: L03.115 Cellulitis of right lower limb (principal); I11.9 Hypertensive heart disease without heart failure; F17.210 Nicotine dependence, cigarettes, uncomplicated; Z79.899 Other long term (current) drug therapy
CPT/HCPCS: 36415; 80048; 85025; 86140; J0690; J1885

== ENCOUNTER 2023-05-26 23:18 | Emergency (ER) | payer OTHER ==
[~2023-05-26] VITALS: Ht 177.8 cm; Wt 149.7 kg
[~2023-05-26 23:18] MED LIST changes: +BUPROPION HCL200 M1 PO; +FUROSEMIDE40 MG PO; +IBUP100S
[2023-05-27] MEDS ORDERED: Lisinopril2.5 MG (00:07)
[2023-05-27] MEDS ORDERED: OXYCODONE-ACET1 EAC3 (00:07)
[2023-05-27] MEDS ORDERED: VARENICLINE TART1 M2 PO (00:07)
[2023-05-27] MEDS ORDERED: TRIA50 PO (00:08)
[2023-05-27 00:24] LABS: BASOPHILS ABSOLUTE AUTO 0.04 K/mm3 (0.00-0.23); BASOPHILS PERCENT AUTO 1 % (0-2); EOSINOPHILS ABSOLUTE AUTO 0.22 K/mm3 (0.00-0.68); EOSINOPHILS PERCENT AUTO 3 % (0-6); Hematocrit 42.9 % (37.0-53.0); Hemoglobin 14.5 g/dL (13.5-17.5); IMMATURE GRAN PERCENT AUTO 0 % (0-1); LYMPHOCYTES ABSOLUTE AUTO 2.68 K/mm3 (0.84-5.20); LYMPHOCYTES PERCENT AUTO 36 % (21-46); MONOCYTES ABSOLUTE AUTO 0.74 K/mm3 (0.16-1.47); MONOCYTES PERCENT AUTO 10 % (4-13); Mean Corpuscular HGB 32.7 pg (26.0-34.0); Mean Corpuscular HGB Conc 33.8 g/dL (31.5-36.5); Mean Corpuscular Volume 97 fL (80-100); Mean Platelet Volume 9.6 fL (9.1-12.4); NEUTROPHILS ABSOLUTE AUTO 3.74 K/mm3 (1.96-9.15); NEUTROPHILS PERCENT AUTO 50 % (41-73); Platelet Count 236 K/mm3 (150-400); RDW Standard Deviation 46.7 fL (35.1-46.3); Red Blood Cell Count 4.44 M/mm3 (4.30-5.90); White Blood Cell Count 7.42 K/mm3 (4.00-11.30)
[2023-05-27 00:44] LABS: Albumin, Blood 3.5 g/dL (3.4-5.0); Albumin/Globulin Ratio 0.9 (0.8-1.8); Bilirubin, Total 0.2 mg/dL (0.1-1.0); Bun/Creatinine Ratio 10.8 (12.0-20.0); Calcium, Blood 8.8 mg/dL (8.5-10.1); Creatinine, Blood 0.92 mg/dL (0.60-1.20); Total Protein, Blood 7.5 g/dL (6.4-8.2)
[2023-05-27 02:00] VITALS: BP 141/84
[2023-05-27] MEDS ORDERED: Ibuprofen600 MG PO (04:15)
== END 2023-05-27 04:25 | disposition home or self-care (01) ==
LOC: ER 23:18
PROVIDERS: Emergency Medicine
DX: S46.912A Strain of unspecified muscle, fascia and tendon at shoulder and upper arm level, left arm, initial encounter (principal); X58.XXXA Exposure to other specified factors, initial encounter; I10 Essential (primary) hypertension; Z87.442 Personal history of urinary calculi; Z79.2 Long term (current) use of antibiotics; Z79.1 Long term (current) use of non-steroidal anti-inflammatories (NSAID); Z79.899 Other long term (current) drug therapy; G47.30 Sleep apnea, unspecified; F17.210 Nicotine dependence, cigarettes, uncomplicated; Z87.81 Personal history of (healed) traumatic fracture
CPT/HCPCS: 71046; 80053; 83605; 83690; 83880; 84484; 85025; 85379; 93005; 93010; 99284-25

== ENCOUNTER 2024-06-27 01:33 | Emergency (ER) | payer OTHER ==
[~2024-06-27] VITALS: Ht 177.8 cm; Wt 145.2 kg
[~2024-06-27 01:33] MED LIST changes: +Ibuprofen600 MG PO; +Lisinopril2.5 MG; +OXYCODONE-ACET1 EAC3; +TENO300 PO; +TIVICAY50 MG PO; +TRIA50 PO; +VARENICLINE TART1 M2 PO
[2024-06-27 02:06] LABS: BASOPHILS ABSOLUTE AUTO 0.05 K/mm3 (0.00-0.23); BASOPHILS PERCENT AUTO 0 % (0-2); EOSINOPHILS ABSOLUTE AUTO 0.18 K/mm3 (0.00-0.68); EOSINOPHILS PERCENT AUTO 2 % (0-6); Hematocrit 44.3 % (37.0-53.0); Hemoglobin 15.1 g/dL (13.5-17.5); IMMATURE GRAN ABSOLUTE AUTO 0.03 K/mm3 (0.00-0.10); IMMATURE GRAN PERCENT AUTO 0 % (0-1); LYMPHOCYTES ABSOLUTE AUTO 2.61 K/mm3 (0.84-5.20); LYMPHOCYTES PERCENT AUTO 22 % (21-46); MONOCYTES ABSOLUTE AUTO 0.96 K/mm3 (0.16-1.47); MONOCYTES PERCENT AUTO 8 % (4-13); Mean Corpuscular HGB 32.5 pg (26.0-34.0); Mean Corpuscular HGB Conc 34.1 g/dL (31.5-36.5); Mean Corpuscular Volume 96 fL (80-100); Mean Platelet Volume 9.9 fL (9.1-12.4); NEUTROPHILS ABSOLUTE AUTO 8.33 K/mm3 (1.96-9.15); NEUTROPHILS PERCENT AUTO 69 % (41-73); Platelet Count 244 K/mm3 (150-400); RDW Coefficient Variation 13.2 % (11.7-14.2); Red Blood Cell Count 4.64 M/mm3 (4.30-5.90); White Blood Cell Count 12.16 K/mm3 (4.00-11.30)
[2024-06-27 02:24] LABS: Albumin, Blood 3.2 g/dL (3.4-5.0); Albumin/Globulin Ratio 0.7 (0.8-1.8); Bilirubin, Total 0.5 mg/dL (0.1-1.0); Bun/Creatinine Ratio 15.7 (12.0-20.0); Calcium, Blood 8.8 mg/dL (8.5-10.1); Creatinine, Blood 0.83 mg/dL (0.60-1.20); Globulin, Blood 4.5 g/dL (2.2-4.0); Total Protein, Blood 7.7 g/dL (6.4-8.2)
[2024-06-27 03:00] VITALS: BP 153/90
[2024-06-27] MEDS ORDERED: Ketorolac Tromethamine 30mg Vial IV ONE (03:15)
[2024-06-27] MEDS ORDERED: AMOCLA875 PO (05:49)
== END 2024-06-27 06:05 | disposition home or self-care (01) ==
LOC: ER 01:33
PROVIDERS: Emergency Medicine
DX: K57.32 Diverticulitis of large intestine without perforation or abscess without bleeding (principal); I10 Essential (primary) hypertension; G47.30 Sleep apnea, unspecified; F17.210 Nicotine dependence, cigarettes, uncomplicated; Z68.42 Body mass index [BMI] 45.0-49.9, adult; Z79.899 Other long term (current) drug therapy
CPT/HCPCS: 71046; 74177; 80053; 84484; 85025; 93005; 93010; 96374; 99284-25; J1885; Q9967

== ENCOUNTER → 2024-07-18 | Outpatient (CLI) | payer OTHER ==
[2024-07-18 13:27] LABS: BASOPHILS ABSOLUTE AUTO 0.05 K/mm3 (0.00-0.23); BASOPHILS PERCENT AUTO 1 % (0-2); EOSINOPHILS ABSOLUTE AUTO 0.19 K/mm3 (0.00-0.68); EOSINOPHILS PERCENT AUTO 2 % (0-6); Hematocrit 45.6 % (37.0-53.0); Hemoglobin 15.5 g/dL (13.5-17.5); IMMATURE GRAN ABSOLUTE AUTO 0.01 K/mm3 (0.00-0.10); IMMATURE GRAN PERCENT AUTO 0 % (0-1); LYMPHOCYTES ABSOLUTE AUTO 2.64 K/mm3 (0.84-5.20); LYMPHOCYTES PERCENT AUTO 32 % (21-46); MONOCYTES PERCENT AUTO 8 % (4-13); Mean Corpuscular HGB 32.4 pg (26.0-34.0); Mean Corpuscular Volume 95 fL (80-100); Mean Platelet Volume 9.4 fL (9.1-12.4); NEUTROPHILS ABSOLUTE AUTO 4.77 K/mm3 (1.96-9.15); NEUTROPHILS PERCENT AUTO 57 % (41-73); Platelet Count 263 K/mm3 (150-400); RDW Coefficient Variation 13.4 % (11.7-14.2); RDW Standard Deviation 46.9 fL (35.1-46.3); Red Blood Cell Count 4.78 M/mm3 (4.30-5.90); White Blood Cell Count 8.36 K/mm3 (4.00-11.30)
[2024-07-18 13:42] LABS: Albumin, Blood 3.6 g/dL (3.4-5.0); Albumin/Globulin Ratio 0.8 (0.8-1.8); Bilirubin, Total 0.2 mg/dL (0.1-1.0); Bun/Creatinine Ratio 10.4 (12.0-20.0); Calcium, Blood 8.3 mg/dL (8.5-10.1); Creatinine, Blood 0.96 mg/dL (0.60-1.20); Globulin, Blood 4.7 g/dL (2.2-4.0); Potassium, Blood 3.8 mmol/L (3.5-5.5); Total Protein, Blood 8.3 g/dL (6.4-8.2)
== END ==
LOC: LAB 13:24 → LAB SHORT 13:24
PROVIDERS: Physician Assistant Surgical
DX: M79.89 Other specified soft tissue disorders (principal)
CPT/HCPCS: 80053; 83880; 85025

== ENCOUNTER → 2024-12-19 | Outpatient (CLI) | payer OTHER | LOC: LAB 11:26 → LAB SHORT 11:26 | DX: A04.8 Other specified bacterial intestinal infections (principal) | CPT/HCPCS: 87338 ==